=== PATIENT | male | born 1940 | race Caucasian/White ===

== ENCOUNTER 2017-09-14 20:59 | Emergency (ER) | payer MEDICARE, OTHER ==
[2017-09-14 21:37] VITALS: BP 158/82
--- NOTE | 2017-09-14 22:13 | EDM.PDOC ---
ED HPI GENERAL MEDICAL PROBLEM - General Chief Complaint: Burn Stated Complaint: burn to left foot Time Seen by Provider: 09/14/17 21:10 Source of Information: Reports: Patient History Limitations: Reports: No Limitations - History of Present Illness INITIAL COMMENTS - FREE TEXT/NARRATIVE: Patient is 76-year-old who is seen with dorsal left foot burn second-degree apparently patient had a blister and it broke he complains of severe pain on the foot especially when standing up patient was seen by in a cruise ship approximately 2 weeks ago and has been wearing lidocaine with Aldara since that time today his blister has broken and his foot is swollen. Onset: Gradual Duration: Day(s): (10 days), Getting Worse Location: Reports: Lower Extremity, Left Quality: Reports: Ache, Burning, Throbbing Severity: Moderate Improves with: Reports: None Worsens with: Reports: Other (Standing) Context: Reports: Other (Some) Associated Symptoms: Reports: No Other Symptoms Treatments OUTREACH SPECIALIST: Reports: Acetaminophen left foot Pain Score (Numeric/FACES): 10 - Related Data Allergies Allergy/AdvReac Type Severity Reaction Status Date / Time colistin Allergy Hives Verified 09/14/17 21:11 venom-honey bee Allergy Airway Verified 09/14/17 21:11 [bee venom (honey bee)] Tightness Home Meds: Home Meds Acetaminophen [Tylenol Extra Strength] 1,000 mg PO Q4HR PRN 02/27/15 [History] Aspirin 81 mg PO ASDIRECTED 02/27/15 [History] Levothyroxine Sodium 137 mcg PO QAM 02/27/15 [History] Lisinopril 40 mg PO QAM 02/27/15 [History] Loratadine 10 mg PO DAILY PRN 02/27/15 [History] diphenhydrAMINE [Benadryl] 25 mg PO DAILY PRN 02/27/15 [History] glipiZIDE [Glucotrol XL] 10 mg PO BID 02/27/15 [History] metFORMIN [Glucophage] 1,000 mg PO BIDMEALS 02/27/15 [History] Albuterol [Proventil HFA] 1 puff INH ASDIRECTED PRN 02/05/16 [History] Albuterol/Ipratropium [Combivent Respimat] 2 puff IH BID 09/06/16 [History] Finasteride 5 mg PO DAILY 02/05/16 [History] Fishtail-3 Fatty Acids [Fish Oil] 1 tab PO DAILY 02/05/16 [History] Vitamin E 400 unit PO DAILY 02/05/16 [History] atorvaSTATin [Lipitor] 10 mg PO DAILY 02/05/16 [History] Diltiazem [Cardizem CD] 120 mg PO DAILY #30 cap.cd 02/07/16 [Rx] Nicotine [Habitrol] 21 mg TRDERM QPM #30 patch 02/07/16 [Rx] Past Medical History HEENT History: Reports: Allergic Rhinitis, Hard of Hearing, Impaired Vision, Other (See Below) Other HEENT History: Severe right-sided chronic otitis media with Pseudomonas aeruginosa which did require one year of IV antibiotic therapy in 2010 and multiple surgeries as below, bilateral tympanic membrane ruptures during the [place] war at about age 20, patient wears glasses, bilateral hearing aid therapy Cardiovascular History: Reports: Arrhythmia, High Cholesterol, Hypertension, Pacemaker, Syncope, Other (See Below) Other Cardiovascular History: History of probable ventricular tachycardia with secondary syncope and asystole with did require apparent cardioversion and temporary pacemaker Respiratory History: Reports: Bronchitis, Recurrent, COPD, Pulmonary Fibrosis, Sleep Apnea, Other (See Below) Other Respiratory History: Very occasional CPAP use Gastrointestinal History: Reports: Cholelithiasis, Colon Polyp, Diverticulosis, Gastritis, GERD, Helicobacter Pylori, Other (See Below) Other Gastrointestinal History: Recently diagnosed H. 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 Musculoskeletal History: Reports: Arthritis, Back Pain, Chronic, Fracture, Neck Pain, Chronic, Osteoarthritis, Other (See Below) Other Musculoskeletal History: Left anterior tibial avulsion fracture on 09/06/12 , L1 vertebral body compression fracture, left distal radial fracture on 11/07/13 Neurological History: Reports: CVA, Other (See Below) Other Neuro History: 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, PA with head concussion on 08/13/10, Psychiatric History: Reports: Anxiety, Depression, Psych Hospitalization(s), PTSD, Suicidal Ideation, Other (See Below) Other Psychiatric History: 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 [place] and also in about 1999 Endocrine/Metabolic History: Reports: Diabetes, Type II, Hypothyroidism, IDDM, Other (See Below) Other Endocrine/Metabolic History: Not currently using insulin Hematologic History: Reports: None Immunologic History: Reports: None Oncologic (Cancer) History: Reports: Other (See Below) Other Oncologic History: Atypical urine cells and dysplasia as above Dermatologic History: Reports: None - Infectious Disease History Infectious Disease History: Reports: Chicken Pox, Helicobacter Pylori, Measles, Mumps, Rubella, Other (See Below) Other Infectious Disease History: Severe pseudomonas infection as above, 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 Denies: Allergic Rhinitis, Glaucoma, Macular Degeneration , Retinal Detachment Cardiac: Reports: CAD, Heart Failure, PA, Other (See Below) Other Cardiac Family History: Father with PA, mother with fatal CHF in her 60s Respiratory: Reports: None. Denies: Asthma, COPD, PE, Sleep Apnea GI: Reports: None. Denies: Celiac Disease, GERD, GI bleed, Inflammatory Bowel Disease, PUD : Reports: None. Denies: Renal Calculus, Renal Disease/Insufficiency OBGYN: Reports: None. Denies: Endometriosis, Recurrent Spontaneous Musculoskeletal: Reports: None. Denies: Arthritis, Gout, RA, SLE Neurological: Reports: None. Denies: Alzheimers Disease, Cerebral Aneurysms, CVA, Dementia, MS, Parkinson's, Seizure, TIA Psychiatric: Reports: Anxiety, Depression, Suicide Attempt, Other (See Below) Other Psychiatric Family History: Brother with alcohol addiction/abuse fatal at age 58, father with anxiety depression disorder in successful suicide in his 70s Endocrine/Metabolic: Reports: Diabetes, type II, IDDM, Other (See Below) Other Endocrine/Metabolic Family History: Mother with IDDM Hematologic: Reports: None. Denies: Anemia, SLE Immunologic: Reports: None. Denies: AIDS, HIV, SLE Dermatologic: Reports: None. Denies: Eczema, Psoriasis Oncologic: Reports: Breast, Leukemia, Metastatic, Other (See Below) Other Oncologic Family History: Mother with history of breast cancer including skeletal metastases fatal at age 65, brother with fatal leukemia in his 40s - Tobacco Use Smoking Status *Q: Current Every Day Smoker Years of Tobacco use: 56 Packs/Tins Daily: 1 Used Tobacco, but Quit: No Second Hand Smoke Exposure: Yes - Caffeine Use Caffeine Use: Reports: Coffee, Tea - Alcohol Use Days Per Week of Alcohol Use: 0 - Recreational Drug Use Recreational Drug Use: Yes Drug Use in Last 12 Months: No Recreational Drug Type: Reports: Cocaine, Marijuana/Hashish, Morphine Recreational Drug Last Use: last used 40 years ago - Living Situation & Occupation Living situation: Reports: , , with Family Occupation: Disabled ED ROS GENERAL - Review of Systems Review Of Systems: See Below Constitutional: Reports: No Symptoms HEENT: Reports: No Symptoms Respiratory: Reports: No Symptoms Cardiovascular: Reports: No Symptoms Endocrine: Reports: No Symptoms GI/Abdominal: Reports: No Symptoms : Reports: No Symptoms Musculoskeletal: Reports: No Symptoms Skin: Reports: No Symptoms Neurological: Reports: No Symptoms Psychiatric: Reports: No Symptoms Hematologic/Lymphatic: Reports: No Symptoms Immunologic: Reports: No Symptoms ED EXAM, GENERAL - Physical Exam Exam: See Below Exam Limited By: No Limitations General Appearance: Alert, WD/WN, Mild Distress Eye Exam: Bilateral Eye: EOMI, PERRL, Other (Cataract patient will have cataract surgery in 2 days) Ears: Normal External Exam, Normal Canal, Hearing Grossly Normal, Normal TMs Nose: Normal Inspection, Normal Mucosa, No Blood Throat/Mouth: Normal Inspection, Normal Lips, Normal Teeth, Normal Gums, Normal Oropharynx, Normal Voice, No Airway Compromise Head: Atraumatic, Normocephalic Neck: Normal Inspection, Supple, Non-Tender, Full Range of Motion Respiratory/Chest: No Respiratory Distress, Lungs Clear, Normal Breath Sounds, No Accessory Muscle Use, Chest Non-Tender Cardiovascular: Normal Peripheral Pulses, Regular Rate, Rhythm, No Edema, No Gallop, No JVD, No Murmur, No Rub GI/Abdominal: Normal Bowel Sounds, Soft, Non-Tender, No Organomegaly, No Distention, No Abnormal Bruit, No Mass (Male) Exam: Deferred Rectal (Males) Exam: Deferred Back Exam: Normal Inspection, Full Range of Motion, NT Extremities: Leg Pain, Redness, Other (Dorsal foot pain secondary to burn and diabetic foot pain which makes it worse) Neurological: Alert, Oriented, CN II-XII Intact, Normal Cognition, Normal Gait, Normal Reflexes, No Motor/Sensory Deficits Psychiatric: Normal Affect, Normal Mood Skin Exam: Erythema (Dorsal aspect of pain of foot) Course - Vital Signs Last Recorded V/S: Last Vital Signs Temp 98.9 F 09/14/17 21:05 Pulse 105 H 09/14/17 21:05 Resp 20 09/14/17 21:05 BP 158/82 H 09/14/17 21:05 Pulse Ox 99 09/14/17 21:05 - Orders/Labs/Meds Labs: Laboratory Tests 09/14/17 Range/Units 21:15 WBC 13.3 H (4.0-10.2) K/uL RBC 4.41 (4.33-5.41) M/uL Hgb 14.0 (13.1-16.8) g/dL Hct 41.0 (39.0-49.0) % MCV 93.0 (84.0-98.0) fL MCH 31.7 (28.2-33.3) pg MCHC 34.1 (31.7-36.0) g/dL RDW 13.6 (11.2-14.1) % Plt Count 284 (150-350) K/uL Neut % (Auto) 53.0 (45.0-80.0) % Lymph % (Auto) 34.3 (10.0-50.0) % [place] % (Auto) 8.8 (2.0-14.0) % Eos % (Auto) 3.2 (0.0-5.0) % Baso % (Auto) 0.7 (0.0-2.0) % Neut # (Auto) 7.05 H (1.40-7.00) K/uL Lymph # (Auto) 4.58 H (0.50-3.50) K/uL [place] # (Auto) 1.18 H (0.00-1.00) K/uL Eos # (Auto) 0.43 (0.00-0.50) K/uL Baso # (Auto) 0.10 (0.00-0.20) K/uL Departure - Departure Time of Disposition: 22:28 Disposition: Home, Self-Care 01 Clinical Impression: Second degree burn of left foot - Discharge Information Referrals: Marilia Coffman PA [Primary Care Provider] - Care Plan Goals: At this time patient burned with stress with Xeroform and open four by fours [facility] also should be started on gabapentin 300 mg 1 tablet 3 times a day for diabetic foot pain follow-up with primary physician patient given enough dressings for dressing change tomorrow
== END 2017-09-14 22:53 | disposition home or self-care (01) ==
LOC: LL.ED 20:59
DX: T25.222A Burn of second degree of left foot, initial encounter (principal); F17.210 Nicotine dependence, cigarettes, uncomplicated; I25.10 Atherosclerotic heart disease of native coronary artery without angina pectoris; I50.9 Heart failure, unspecified; I25.2 Old myocardial infarction; F41.9 Anxiety disorder, unspecified; F32.9 Major depressive disorder, single episode, unspecified; E11.9 Type 2 diabetes mellitus without complications; Z79.899 Other long term (current) drug therapy; Z91.030 Bee allergy status; Z79.84 Long term (current) use of oral hypoglycemic drugs; X58.XXXA Exposure to other specified factors, initial encounter
CPT/HCPCS: 36415; 85025; 99283

== ENCOUNTER 2018-08-25 15:42 | Inpatient (IN) | payer MEDICARE, OTHER ==
[2018-08-25] MEDS ORDERED: Metoprolol Tartrate 5 MG/5 ML SDV IVPUSH ONE (16:00)
[2018-08-25] MEDS ORDERED: Famotidine 20 MG/2 ML SDV IVPUSH ONE (16:00)
--- NOTE | 2018-08-25 16:00 | EDM.PDOC ---
ED HPI GENERAL MEDICAL PROBLEM - General Chief Complaint: Cardiovascular Problem Stated Complaint: dizziness, HTN Time Seen by Provider: 08/25/18 15:55 Source of Information: Reports: Patient, Family (), Old Records ([facility] chart/EMR) History Limitations: Reports: No Limitations - History of Present Illness INITIAL COMMENTS - FREE TEXT/NARRATIVE: The patient was brought to the emergency room via private automobile by his for evaluation of progressive chronic vertigo and dizziness with symptoms starting about one week ago. Patient was placed on low-dose spironolactone prior to the symptoms with patient stopping these medications after only 4 doses , however no improvement in the symptoms. Note that the patient is also having some recurrence of right ear problems with possible planned surgery in the near future. The patient denies any chest pain/pressure, heart flutter, orthopnea, diaphoresis, paresthesias, recent decreased exercise tolerance, or any other anginal-type symptoms. No recent history of abdominal pain, heartburn, nausea, diarrhea, melena, gross hematochezia, or any food intolerance, including fatty foods, etc.. He denies any gross hematuria, colic, or other UTI symptoms. The patient also denies any recent fever, wheezing, dyspnea, etc., although he should not mild nonproductive cough in the last few days. His blood pressure has been under somewhat poor control with blood pressure of 190/103 shortly prior to arrival. No history of recent headaches, visual changes, diplopia, change in mental status, or other change in neurological status. He denies any pain or other discomfort. Onset: Gradual, Unknown/Unsure Onset Date: 08/18/18 Duration: Constant, Getting Worse Location: Reports: Other (No pain) Quality: Reports: Same as Previous Episode Severity: Moderate Improves with: Reports: Rest Worsens with: Reports: Movement Context: Reports: Other (As above). Denies: Sick Contact, Trauma Associated Symptoms: Reports: Cough. 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: Other (see below) (None) - Related Data Allergies Allergy/AdvReac Type Severity Reaction Status Date / Time colistin Allergy Hives Verified 08/25/18 15:48 venom-honey bee Allergy Airway Verified 08/25/18 15:48 [bee venom (honey bee)] Tightness yellow jackets Allergy Swelling Uncoded 08/25/18 15:48 Home Meds: Home Meds Aspirin 81 mg PO ASDIRECTED 02/27/15 [History] Levothyroxine Sodium 137 mcg PO QAM 02/27/15 [History] Lisinopril 40 mg PO QAM 02/27/15 [History] Loratadine 10 mg PO DAILY PRN 02/27/15 [History] diphenhydrAMINE [Benadryl] 25 mg PO DAILY PRN 02/27/15 [History] glipiZIDE [Glucotrol XL] 10 mg PO BID 02/27/15 [History] metFORMIN [Glucophage] 1,000 mg PO BIDMEALS 02/27/15 [History] Albuterol [Proventil HFA] 1 puff INH ASDIRECTED PRN 02/05/16 [History] Finasteride 5 mg PO DAILY 02/05/16 [History] [place]-3 Fatty Acids [Fish Oil] 1 tab PO DAILY 02/05/16 [History] atorvaSTATin [Lipitor] 10 mg PO DAILY 02/05/16 [History] Cranberry Conc/C/Bacill Coag [Cranberry Tablet] 1 each PO DAILY PRN 08/25/18 [ History] Diltiazem [Cardizem CD] 120 mg PO DAILY@18 08/25/18 [History] Past Medical History HEENT History: Reports: Allergic Rhinitis, Hard of Hearing, Impaired Vision, Otitis Media, Other (See Below). Denies: Cataract, Glaucoma, Macular Degeneration, Retinal Detachment Other HEENT History: Severe right-sided chronic otitis media with Pseudomonas aeruginosa which did require one year of IV antibiotic therapy in 2010 and multiple surgeries as below, bilateral tympanic membrane ruptures during the [place] war at about age 20, patient wears reading glasses, bilateral hearing aid therapy, vitreous floaters without history of retinal detachment or diabetic retinopathy. Cardiovascular History: Reports: Arrhythmia, High Cholesterol, Hypertension, Pacemaker, Syncope, Other (See Below). Denies: Afib, Blood Clots/VTE/DVT, Bypass, CAD, Heart Failure, Heart Murmur, IA, Stents Other Cardiovascular History: History of probable ventricular tachycardia with secondary syncope and asystole with did require apparent cardioversion and temporary pacemaker in 1992. PVCs. History of atrial fibrillation? Respiratory History: Reports: Bronchitis, Recurrent, COPD, Intubation, Previous , Pneumonia, Recurrent, Pulmonary Fibrosis, Sleep Apnea, Other (See Below). Denies: Intubation, Difficult, PE, Pneumothorax, TB Other Respiratory History: Very occasional CPAP use Gastrointestinal History: Reports: Cholelithiasis, Colon Polyp, Diverticulosis, Fecal Incontinence, Gastritis, GERD, Helicobacter Pylori, Other (See Below). Denies: Bowel Obstruction, Celiac Disease, Chronic Constipation, Chronic Diarrhea, GI Bleed, Hepatitis, Inflammatory Bowel Disease, Irritable Bowel Syndrome, Jaundice, Pancreatitis, PUD Other Gastrointestinal History: H. pylori infection on 11/30/09, however the patient apparently did not complete recommended therapy. Genitourinary History: Reports: BPH, Chronic Renal Insuffiency, Diabetic Nephropathy, Renal Calculus, Urinary Incontinence, UTI, Recurrent, Other (See Below). 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 Proteinuria with diabetic nephropathy. Musculoskeletal History: Reports: Arthritis, Back Pain, Chronic, Fracture, Neck Pain, Chronic, Osteoarthritis, Other (See Below). Denies: Amputation, Gout, RA , SLE Other Musculoskeletal History: Left anterior tibial avulsion fracture on 09/06/12 , L1 vertebral body compression fracture, left distal radial fracture on 11/07/13 Neurological History: Reports: Concussion, CVA, Head Trauma, Other (See Below). 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 Denies: Diabetes, Type I, Diabetes Mellitus , Type 3c Other Endocrine/Metabolic History: Not currently using insulin. Hypoalbuminemia. Hematologic History: Reports: None. Denies: Anemia, B12 Deficiency, Blood Transfusion(s), Iron Deficiency Immunologic History: Reports: None. Denies: AIDS, HIV, SLE Oncologic (Cancer) History: Reports: Bladder, Other (See Below). Denies: Basal Cell Carcinoma, Colon, Hodgkin's Lymphoma, Leukemia, Lymphoma, Malignant Melanoma, Non-Hodgkin's Lymphoma, Prostate, Squamous Cell Carcinoma Other Oncologic History: Atypical urine cells and dysplasia as above Dermatologic History: Reports: None. Denies: Eczema, Psoriasis - Infectious Disease History Infectious Disease History: Reports: Chicken Pox, Helicobacter Pylori, Measles, Mumps, Rubella, Other (See Below). 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 Denies: Cataract Surgery, Eye Surgery, Laser Surgery, LASIK, Naso-Sinus Surgery Other HEENT Surgeries/Procedures: Right-sided mastoidectomy in the distant past with 2 right-sided mastoid and ear surgeries in 2008 and 2019. Unknown type of left ear surgery in 2011. Tonsillectomy as a child. Complete teeth extractions with complete dentures uppers and lowers. Cardiovascular Surgical History: Reports: Pacer, Other (See Below). Denies: Coronary Artery Bypass, Coronary Artery Stent, Varicose, Vascular Surgery Other Cardiovascular Surgeries/Procedures: Temporary pacemaker 1992 as above with subsequent electro-ablation on 07/15/1992. Respiratory Surgical History: Reports: None. Denies: Thoracentesis GI Surgical History: Reports: Cholecystectomy, Colonoscopy, Polypectomy, Other ( See Below). Denies: Appendectomy, EGD, Hernia, Abdominal, Hernia, Inguinal, Hernia Repair/Other Other GI Surgeries/Procedures: Laparoscopic cholecystectomy in about 2007. Colonoscopy in 1987 with polypectomy and patient refusing further follow-up colonoscopy. Male Surgical History: Reports: Circumcision, Other (See Below). Denies: TURP-Transurethral Resection of Prostate, Vasectomy Other Male Surgeries/Procedures: Circumcision as an . Endocrine Surgical History: Reports: None. Denies: Thyroid Biopsy Neurological Surgical History: Reports: None. Denies: C-Spine, Discectomy, Laminectomy, Lumbar Spine, Sacral Spine, Spinal Fusion, Thoracic Spine, Vertebroplasty Musculoskeletal Surgical History: Reports: None. Denies: Arthroscopic Procedure , Carpal Tunnel, Ganglion Cyst, Joint Replacement, ORIF, Shoulder Surgery Oncologic Surgical History: Reports: None Dermatological Surgical History: Reports: None - Past Imaging History Past Imaging History: Reports: CAT Scan (CT scan of the head, chest, and C- spine on 08/13/10.), MRI (C-spine on 04/23/10.), Sleep Study, Ultrasound (Renal ultrasound on 11/22/13.). Denies: Cardiac Echo, Stress Testing Social & Family History - Family History HEENT: Reports: None. Denies: Allergic Rhinitis, Glaucoma, Macular Degeneration , Retinal Detachment Cardiac: Reports: CAD, Heart Failure, IA, Other (See Below). Denies: Afib, AICD , Arrhythmia, Blood Clots/VTE/DVT, Bypass, High Cholesterol, Hypertension, Pacemaker, PVD/COD, Syncope Other Cardiac Family History: Father with IA, mother with fatal CHF in her 60s Respiratory: Reports: None. Denies: Asthma, COPD, PE, Pneumothorax, Sleep Apnea GI: Reports: None. Denies: Celiac Disease, Cholelithiasis, Colon Polyps, GERD, GI bleed, Inflammatory Bowel Disease, Irritable Bowel Syndrome, PUD : Reports: None. Denies: Renal Calculus, Renal Disease/Insufficiency OBGYN: Reports: None. Denies: Endometriosis, Recurrent Spontaneous Musculoskeletal: Reports: None. Denies: Arthritis, Gout, RA, SLE Neurological: Reports: None. Denies: Alzheimers Disease, Cerebral Aneurysms, CVA, Dementia, MS, Parkinson's, Seizure, TIA Psychiatric: Reports: Anxiety, Depression, Suicide Attempt, Other (See Below). Denies: Abuse, Victim of, ADD, ADHD Other Psychiatric Family History: Brother with alcohol addiction/abuse fatal at age 58, father with anxiety depression disorder in successful suicide in his 70s Endocrine/Metabolic: Reports: Diabetes, type II, IDDM, Other (See Below). Denies: Diabetes, Type I, Diabetes Mellitus, Type 3c, Hypothyroidism Other Endocrine/Metabolic Family History: Mother with IDDM Hematologic: Reports: None. Denies: Anemia, SLE Immunologic: Reports: None. Denies: AIDS, HIV, SLE Dermatologic: Reports: None. Denies: Eczema, Psoriasis Oncologic: Reports: Breast, Leukemia, Metastatic, Other (See Below). Denies: Colon, Hodgkin's Lymphoma, Lymphoma, Non-Hodgkin's Lymphoma, Prostate Other Oncologic Family History: Mother with history of breast cancer including skeletal metastases fatal at age 65, brother with fatal leukemia in his 40s - Tobacco Use Smoking Status *Q: Current Every Day Smoker Tobacco Use Within Last Twelve Months: Cigarettes Years of Tobacco use: 58 Packs/Tins Daily: 0.5 Packs/Tins Daily Comment: He started smoking at age 19 with maximum use of one pack per day. Used Tobacco, but Quit: No Smoking Cessation Information Provided To Patient: Yes Second Hand Smoke Exposure: Yes Second Hand Smoke Education Provided: Yes - Caffeine Use Caffeine Use: Reports: Coffee (2 cups per day). Denies: Energy Drinks, Soda, Tea - Alcohol Use Alcohol Use History: Yes Days Per Week of Alcohol Use: 0 Number of Drinks Per Day: 3 Number of Drinks Per Day Comment: Usually mixed drinks on special occasions and holidays. No previous DWIs, problems with alcohol abuse, etc. Total Drinks Per Week: 0 Alcohol Use in Last Twelve Months: Yes Alcohol Use Frequency: Rarely - Recreational Drug Use Recreational Drug Use: Yes Drug Use in Last 12 Months: No Recreational Drug Type: Reports: Cocaine (Experimental in his 30s.), Marijuana/ Hashish (Last used in 2013.), Morphine (Addiction with treatment as above.). 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 ED EXAM, GENERAL - Physical Exam Exam: See Below Exam Limited By: No Limitations General Appearance: Alert, WD/WN, No Apparent Distress Eye Exam: Bilateral Eye: EOMI, Normal Fundi, Normal Inspection (No nystagmus however vertigo with head movement), PERRL Ears: Normal External Exam, Normal Canal, Normal TMs, Hearing Loss (Moderate bilateral presbycusis versus chronic hearing loss with patient only wearing his left hearing aid today) Nose: Normal Inspection, Normal Mucosa, No Blood Throat/Mouth: Normal Lips, Normal Gums, Normal Oropharynx, Normal Voice, No Airway Compromise. No: Normal Teeth (Complete dentures uppers and lowers), Dysphagia, Perioral Cyanosis Head: Atraumatic, Normocephalic. No: Facial Swelling, Facial Tenderness, Sinus Tenderness Neck: Supple, Non-Tender, Full Range of Motion, Carotid Bruit (Mild bilateral carotid bruits). No: Lymphadenopathy (L), Lymphadenopathy (R), Thyromegaly Respiratory/Chest: No Respiratory Distress, No Accessory Muscle Use, Rales ( Mild bilateral basilar rales). No: Pleural Rub, Retractions Cardiovascular: Normal Peripheral Pulses, Regular Rate, Rhythm, No Gallop, No JVD, No Murmur, No Rub. No: No Edema (Dependent edema as below), Gallop/S3, Gallop/S4, Extra Beats (No extrasystoles at time of exam), Friction Rub Peripheral Pulses: 2+: Radial (L), Radial (R), Dorsalis Pedis (L), Dorsalis Pedis (R) GI/Abdominal: Normal Bowel Sounds, Soft, Non-Tender, No Organomegaly, No Distention, No Abnormal Bruit, No Mass, Other (Obese). No: Pelvis Stable, Guarding (Male) Exam: Deferred Rectal (Males) Exam: Deferred Back Exam: Normal Inspection, Full Range of Motion. No: CVA Tenderness (L), CVA Tenderness (R), Muscle Spasm Extremities: Normal Range of Motion, Non-Tender, Pedal Edema (+1 bilateral pedal /pretibial edema), Casi's Sign. No: No Pedal Edema Neurological: Alert, Oriented, CN II-XII Intact, Normal Cognition, Normal Gait, Normal Reflexes (Negative Babinski's ), No Motor/Sensory Deficits Psychiatric: Normal Affect, Normal Mood Skin Exam: Warm, Dry, Intact, Normal Color, No Rash. No: Diaphoretic, Wound/ Incision Lymphatic: No Adenopathy EKG INTERPRETATION EKG Date: 08/25/18 Time: 16:09 Rhythm: NSR Rate (Beats/Min): 72 [place]: Normal (Neutral cardiac axis) P-Wave: Present (Moderate diffuse biphasic P waves with extreme poor R-wave progression in the anterior leads) QRS: Wide (QRS interval of 0.10 seconds representing stable repolarization changes versus borderline incomplete right bundle branch block with stable T- wave inversion in lead V1) ST-T: Normal QT: Normal NJ/PQ Interval: 0.43 seconds representing a severe newly diagnosed first-degree AV block Comparison: Change From Previous EKG (As above since 02/06/16.) EKG Interpretation Comments: 1. Newly diagnosed severe first-degree AV block 2. No acute ischemic changes 3. Repolarization changes versus borderline incomplete right bundle branch block 4. Left atrial enlargement Course - Vital Signs Last Recorded V/S: Last Vital Signs Temp 36.5 C 08/25/18 15:45 Pulse 74 08/25/18 16:08 Resp 16 08/25/18 15:45 BP 186/106 H 08/25/18 16:08 Pulse Ox 98 08/25/18 15:45 Vital Signs - 24 hr 08/25/18 08/25/18 08/25/18 15:45 16:01 16:08 Temperature [ 36.5 C Temporal] Pulse, 74 Peripheral Pulse, 66 71 Peripheral [ Brachial] Respiratory 16 17 Rate Blood Pressure 186/106 H Blood Pressure 188/98 H 186/106 H [Right Upper Arm] O2 Sat by Pulse 98 99 Oximetry 08/25/18 08/25/18 08/25/18 16:15 16:30 16:45 Temperature [ Temporal] Pulse, Peripheral Pulse, 68 63 Peripheral [ Brachial] Respiratory 15 16 Rate Blood Pressure Blood Pressure 184/98 H 170/91 H 168/88 H [Right Upper Arm] O2 Sat by Pulse 98 97 Oximetry - Orders/Labs/Meds Orders: Active Orders 24 hr Category Date Time Status Cardiac Monitoring [RC] . DIRECTED Care 08/25/18 16:01 Active EKG Documentation Completion [RC] ASDIRECTED Care 08/25/18 16:01 Active Oxygen Therapy, ED [RC] PRN Care 08/25/18 16:01 Active Peripheral IV Care [RC] . DIRECTED Care 08/25/18 16:01 Active Pulse Oximetry [RC] CONTINUOUS Care 08/25/18 16:01 Active Up With Assistance [RC] PFP Care 08/25/18 16:01 Active Vital Signs [RC] PFP Care 08/25/18 16:01 Active Nothing per Oral Now Diet [DIET] Diet 08/25/18 Breakfast Active Chest 1V Frontal [CR] Stat Exams 08/25/18 16:01 Ordered Furosemide [Lasix] Med 08/25/18 17:07 Once 60 mg IVPUSH NOW ONE Sodium Chloride 0.9% [Saline Flush] Med 08/25/18 16:00 Active 10 ml FLUSH ASDIRECTED PRN Obtain Past Medical Record [OM.PC] Urgent Oth 08/25/18 16:01 Active Peripheral IV Insertion Adult [OM.PC] Stat Oth 08/25/18 16:01 Ordered Resuscitation Status Stat Resus Stat 08/25/18 16:00 Ordered EKG 12 Lead [EK] Stat Ther 08/25/18 16:01 Ordered Medication Orders Furosemide (Lasix) 60 mg IVPUSH NOW ONE Stop: 08/25/18 17:08 Sodium Chloride (Saline Flush) 10 ml FLUSH ASDIRECTED PRN PRN Reason: Keep Vein Open Last Admin: 08/25/18 16:13 Dose: 10 ml Labs: Laboratory Tests 08/25/18 08/25/18 08/25/18 Range/Units 16:02 16:02 16:02 WBC 11.0 H (4.0-10.2) K/uL RBC 4.46 (4.33-5.41) M/uL Hgb 14.2 (13.1-16.8) g/dL Hct 41.3 (39.0-49.0) % MCV 92.6 (84.0-98.0) fL MCH 31.8 (28.2-33.3) pg MCHC 34.4 (31.7-36.0) g/dL RDW 13.0 (11.2-14.1) % Plt Count 251 (150-350) K/uL Neut % (Auto) 58.0 (45.0-80.0) % Lymph % (Auto) 32.2 (10.0-50.0) % Island % (Auto) 6.8 (2.0-14.0) % Eos % (Auto) 1.9 (0.0-5.0) % Baso % (Auto) 1.1 (0.0-2.0) % Neut # (Auto) 6.40 (1.40-7.00) K/uL Lymph # (Auto) 3.56 H (0.50-3.50) K/uL Island # (Auto) 0.75 (0.00-1.00) K/uL Eos # (Auto) 0.21 (0.00-0.50) K/uL Baso # (Auto) 0.12 (0.00-0.20) K/uL PT 10.4 (9.5-12.0) SEC INR 1.0 APTT 27.1 (21.0-31.3) SEC D-Dimer, Quantitative 209 (0-400) ng/mL Sodium (136-145) mmol/L Potassium (3.5-5.1) mmol/L Chloride (98-107) mmol/L Carbon Dioxide (21.0-32.0) mmol/L BUN (7-18) mg/dL Creatinine (0.51-1.17) mg/dL Est Cr Clr Drug Dosing Estimated GFR (MDRD) mL/min Glucose (74-106) mg/dL Lactic Acid (0.4-2.0) mmol/L Uric Acid (2.6-7.2) mg/dL Calcium (8.5-10.1) mg/dL Magnesium (1.8-2.4) mg/dL Total Bilirubin (0.2-1.0) mg/dL AST (15-37) U/L ALT (12-78) U/L Alkaline Phosphatase (46-116) IU/L Creatine Kinase (26-308) U/L Creatine Kinase Index (0.0-2.5) % CK-MB (CK-2) (0.00-3.60) ng/mL Troponin I (0.000-0.056) ng/mL NT-Pro-B Natriuret Pep (0-125) pg/mL Total Protein (6.4-8.2) g/dL Albumin (3.4-5.0) g/dL TSH, Ultra Sensitive (0.358-3.740) mIU/mL 08/25/18 08/25/18 Range/Units 16:02 16:02 WBC (4.0-10.2) K/uL RBC (4.33-5.41) M/uL Hgb (13.1-16.8) g/dL Hct (39.0-49.0) % MCV (84.0-98.0) fL MCH (28.2-33.3) pg MCHC (31.7-36.0) g/dL RDW (11.2-14.1) % Plt Count (150-350) K/uL Neut % (Auto) (45.0-80.0) % Lymph % (Auto) (10.0-50.0) % Island % (Auto) (2.0-14.0) % Eos % (Auto) (0.0-5.0) % Baso % (Auto) (0.0-2.0) % Neut # (Auto) (1.40-7.00) K/uL Lymph # (Auto) (0.50-3.50) K/uL [place] # (Auto) (0.00-1.00) K/uL Eos # (Auto) (0.00-0.50) K/uL Baso # (Auto) (0.00-0.20) K/uL PT (9.5-12.0) SEC INR APTT (21.0-31.3) SEC D-Dimer, Quantitative (0-400) ng/mL Sodium 137 (136-145) mmol/L Potassium 4.0 (3.5-5.1) mmol/L Chloride 101 (98-107) mmol/L Carbon Dioxide 29.5 (21.0-32.0) mmol/L BUN 22 H (7-18) mg/dL Creatinine 1.27 H (0.51-1.17) mg/dL Est Cr Clr Drug Dosing TNP Estimated GFR (MDRD) 55 mL/min Glucose 291 H (74-106) mg/dL Lactic Acid 0.8 (0.4-2.0) mmol/L Uric Acid 5.0 (2.6-7.2) mg/dL Calcium 8.9 (8.5-10.1) mg/dL Magnesium 1.6 L (1.8-2.4) mg/dL Total Bilirubin 0.8 (0.2-1.0) mg/dL AST 14 L (15-37) U/L ALT 30 (12-78) U/L Alkaline Phosphatase 89 (46-116) IU/L Creatine Kinase 62 (26-308) U/L Creatine Kinase Index 2.3 (0.0-2.5) % CK-MB (CK-2) 1.40 (0.00-3.60) ng/mL Troponin I 0.017 (0.000-0.056) ng/mL NT-Pro-B Natriuret Pep 321 H (0-125) pg/mL Total Protein 6.9 (6.4-8.2) g/dL Albumin 3.1 L (3.4-5.0) g/dL TSH, Ultra Sensitive 3.397 (0.358-3.740) mIU/mL Meds: Medications Generic Name Dose Route Start Last Admin Trade Name Freq PRN Reason Stop Dose Admin Furosemide 60 mg 08/25/18 17:07 Lasix IVPUSH 08/25/18 17:08 NOW ONE Sodium Chloride 10 ml 08/25/18 16:00 08/25/18 16:13 Saline Flush FLUSH 10 ml ASDIRECTED PRN Administration Keep Vein Open Discontinued Medications Generic Name Dose Route Start Last Admin Trade Name Freq PRN Reason Stop Dose Admin Famotidine 40 mg 08/25/18 16:00 08/25/18 16:13 Pepcid IVPUSH 08/25/18 16:01 40 mg ONETIME ONE Administration Metoprolol Tartrate 2.5 mg 08/25/18 16:00 08/25/18 16:08 Lopressor IVPUSH 08/25/18 16:01 2.5 mg ONETIME ONE Administration - Radiology Interpretation Free Text/Narrative:: youth nutritional monitor showed initial sinus rhythm with very occasional PVCs with initial heart rate in the 70s to 80s and heart rate in the 60s prior to admission Chest x-ray, portable, shows moderate COPD changes with probable pulmonary hypertension and mild centralized CHF. No pulmonary infiltrates, pneumothorax, or cardiomegaly with some prominence of the aortic arch noted Departure - Departure Time of Disposition: 17:30 Disposition: Admitted As Inpatient 68 Condition: Good Clinical Impression: Peptic reflux disease, Mixed anxiety depressive disorder, Renal insufficiency, Hypoalbuminemia, Hypomagnesemia, First degree AV block COPD (chronic obstructive pulmonary disease) Qualifiers: COPD type: emphysema Emphysema type: panlobular Qualified Code(s): J43.1 - Panlobular emphysema Hypothyroidism Qualifiers: Hypothyroidism type: acquired Qualified Code(s): E03.9 - Hypothyroidism, unspecified Hyperlipidemia Qualifiers: Hyperlipidemia type: unspecified Qualified Code(s): E78.5 - Hyperlipidemia, unspecified Diabetes mellitus Qualifiers: Diabetes mellitus type: type 2 Diabetes mellitus [facility] insulin use: without rodent exterminator use Diabetes mellitus complication status: with kidney complications Diabetes mellitus complication detail: with chronic kidney disease Chronic kidney disease stage: stage 2 (mild) Qualified Code(s): E11.22 - Type 2 diabetes mellitus with diabetic chronic kidney disease; N18.2 - Chronic kidney disease, stage 2 (mild) CHF (congestive heart failure) Qualifiers: Heart failure type: unspecified Heart failure chronicity: acute Qualified Code( s): I50.9 - Heart failure, unspecified Referrals: Marilia Coffman PA [Primary Care Provider] - Forms: ED Department Discharge - Problem List & Annotations (1) CHF (congestive heart failure) SNOMED Code(s): 34464789 Code(s): I50.9 - HEART FAILURE, UNSPECIFIED Status: Acute Priority: High Current Visit: Yes Onset Date: 08/25/18 Annotation/Comment:: Patient with history of recent increasing dependent edema without chest pain or anginal type symptoms. Mildly elevated BNP with mild centralized CHF by chest x-ray. Note mild change in troponin I secondary to his CHF and renal insufficiency. Otherwise his cardiac enzymes are normal. Chest pain protocol not initiated on arrival secondary to absence of anginal complaints. Initiate standard rule out IA orders. Cardiology consultation depending on his clinical course with patient apparently having a cardiology consultation at the [facility] in [place] on 09/27. Echocardiogram recommended on an outpatient basis. Possible additional cardiac workup depending on his clinical course. High-dose IV Lasix therapy initiated in the emergency room. Qualifiers: Heart failure type: unspecified Heart failure chronicity: acute Qualified Code(s): I50.9 - Heart failure, unspecified (2) First degree AV block SNOMED Code(s): 491161290 Code(s): I44.0 - ATRIOVENTRICULAR BLOCK, FIRST DEGREE Status: Acute Priority: High Current Visit: Yes Onset Date: 08/25/18 Annotation/Comment: : Newly diagnosed. Patient is uncertain about current medical therapy with medications to be brought to this facility [facility] by his . Discontinue diltiazem, if he is still on this medication. Low Dose IV Lopressor was given for blood pressure control prior to obtaining EKG. No further beta lashaun therapy at this time, however. 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 Further EP studies, cardiology consultation, etc. with patient possibly candidate for an AICD/ pacemaker. Occasional nonsymptomatic PVCs, which were previously present. Possible history of atrial fibrillation in the past? (3) Diabetes mellitus SNOMED Code(s): 68635074 Code(s): E11.9 - TYPE 2 DIABETES MELLITUS WITHOUT COMPLICATIONS Status: Chronic Priority: Medium Current Visit: Yes Annotation/Comment:: Patient has not been checking his Accu-Cheks at home. Glycosylated hemoglobin in the a.m. Consider sliding scale depending on his clinical course. Qualifiers: Diabetes mellitus type: type 2 Diabetes mellitus [facility] insulin use: without rodent exterminator use Diabetes mellitus complication status: with kidney complications Diabetes mellitus complication detail: with chronic kidney disease Chronic kidney disease stage: stage 2 (mild) Qualified Code(s): E11.22 - Type 2 diabetes mellitus with diabetic chronic kidney disease; N18.2 - Chronic kidney disease, stage 2 (mild) (4) Hyperlipidemia SNOMED Code(s): 21895916 Code(s): E78.5 - HYPERLIPIDEMIA, UNSPECIFIED Status: Chronic Priority: Medium Current Visit: Yes Annotation/Comment:: Currently under therapy. Lipid panel in the a.m. Weight loss in moderation advisable. Qualifiers: Hyperlipidemia type: unspecified Qualified Code(s): E78.5 - Hyperlipidemia , unspecified (5) Hypoalbuminemia SNOMED Code(s): 835393466 Code(s): E88.09 - OTH DISORDERS OF PLASMA-PROTEIN METABOLISM, NEC Status: Chronic Priority: Medium Current Visit: Yes Annotation/Comment:: Observe for now. Consider high protein Glucerna supplement depending on his clinical course (6) Hypomagnesemia SNOMED Code(s): 208320889 Code(s): E83.42 - HYPOMAGNESEMIA Status: Acute Priority: Medium Current Visit: Yes Onset Date: 08/25/18 Annotation/Comment:: Initiate magnesium oxide therapy. Observe closely secondary to IV Lasix therapy as above (7) Mixed anxiety depressive disorder SNOMED Code(s): 308204272 Code(s): F41.8 - OTHER SPECIFIED ANXIETY DISORDERS Status: Chronic Priority: Medium Current Visit: Yes Annotation/Comment:: Stable by history (8) Renal insufficiency SNOMED Code(s): 114599474, 127389445 Code(s): N28.9 - DISORDER OF KIDNEY AND URETER, UNSPECIFIED Status: Acute Priority: Medium Current Visit: Yes Onset Date: 02/05/16 Annotation/ Comment:: Probable diabetic nephropathy. Close observation during hospitalization, etc. secondary to IV Lasix therapy. Apparent history of proteinuria with patient followed by a independent contractor. (9) COPD (chronic obstructive pulmonary disease) SNOMED Code(s): 24431331 Code(s): J44.9 - CHRONIC OBSTRUCTIVE PULMONARY DISEASE, UNSPECIFIED Status : Chronic Priority: Medium Current Visit: Yes Annotation/Comment:: No recent fever or bronchitic-type symptoms, despite mild leukocytosis as below. Qualifiers: COPD type: emphysema Emphysema type: panlobular Qualified Code(s): J43.1 - Panlobular emphysema (10) Hypothyroidism SNOMED Code(s): 98713645 Code(s): E03.9 - HYPOTHYROIDISM, UNSPECIFIED Status: Chronic Priority: Medium Current Visit: Yes Annotation/Comment:: TSH normal today with continuation of current medical therapy. Qualifiers: Hypothyroidism type: acquired Qualified Code(s): E03.9 - Hypothyroidism, unspecified (11) Peptic reflux disease SNOMED Code(s): 654311878 Code(s): K21.9 - GASTRO-ESOPHAGEAL REFLUX DISEASE WITHOUT ESOPHAGITIS Status: Chronic Priority: Medium Current Visit: Yes Annotation/Comment:: Stable by history. High-dose IV Pepcid given in the emergency room as GI prophylaxis - Problem List Review Problem List Initiated/Reviewed/Updated: Yes - My Orders Last 24 Hours: My Active Orders 08/25/18 16:00 Sodium Chloride 0.9% [Saline Flush] 10 ml FLUSH ASDIRECTED PRN Resuscitation Status Stat 08/25/18 16:01 Cardiac Monitoring [RC] . DIRECTED EKG Documentation Completion [RC] ASDIRECTED Oxygen Therapy, ED [RC] PRN Peripheral IV Care [RC] . DIRECTED Pulse Oximetry [RC] CONTINUOUS Up With Assistance [RC] PFP Vital Signs [RC] PFP Chest 1V Frontal [CR] Stat Obtain Past Medical Record [OM.PC] Urgent Peripheral IV Insertion Adult [OM.PC] Stat EKG 12 Lead [EK] Stat 08/25/18 17:07 Furosemide [Lasix] 60 mg IVPUSH NOW ONE 08/25/18 Breakfast Nothing per Oral Now Diet [DIET] - Assessment/Plan Last 24 Hours: My Active Orders 08/25/18 16:00 Sodium Chloride 0.9% [Saline Flush] 10 ml FLUSH ASDIRECTED PRN Resuscitation Status Stat 08/25/18 16:01 Cardiac Monitoring [RC] . DIRECTED EKG Documentation Completion [RC] ASDIRECTED Oxygen Therapy, ED [RC] PRN Peripheral IV Care [RC] . DIRECTED Pulse Oximetry [RC] CONTINUOUS Up With Assistance [RC] PFP Vital Signs [RC] PFP Chest 1V Frontal [CR] Stat Obtain Past Medical Record [OM.PC] Urgent Peripheral IV Insertion Adult [OM.PC] Stat EKG 12 Lead [EK] Stat 08/25/18 17:07 Furosemide [Lasix] 60 mg IVPUSH NOW ONE 08/25/18 Breakfast Nothing per Oral Now Diet [DIET] Assessment:: As above Plan: As above. Extensive precautions were given to the patient and his , who are in agreement with the treatment plan. The patient will require about 3-4 days of inpatient/acute care secondary to multiple health problems as above. [facility] assumes care in the a.m.
[2018-08-25] MEDS: Sodium Chloride 0.9% 10 ML Syringe FLUSH PRN ×2 (16:13→17:20)
[2018-08-25 16:33] LABS: CHLORIDE,CL 101 mmol/L (98-107); SODIUM,NA 137 mmol/L (136-145)
[2018-08-25] MEDS ORDERED: Furosemide 40 MG/4 ML VIAL IVPUSH ONE (17:07)
[2018-08-25] MEDS ORDERED: Acetaminophen 325 MG Tab PO PRN (17:54)
[2018-08-25] MEDS ORDERED: Temazepam 15 MG Cap PO PRN (17:54)
[2018-08-25] MEDS ORDERED: Sodium Chloride 0.9% 10 ML Syringe FLUSH PRN (17:54)
[2018-08-25] MEDS: Spironolactone 25 MG Tab PO SCH (18:50)
[2018-08-25] MEDS: Lisinopril 20 MG Tab PO SCH (18:50)
[2018-08-25] MEDS: Potassium Chloride 20 MEQ Tab.ER PO SCH (18:52)
[2018-08-25] MEDS: metFORMIN 500 MG Tab PO SCH (18:53)
[2018-08-25] MEDS: glipiZIDE 5 MG Tab.ER PO SCH (18:53)
[2018-08-25] MEDS: Nicotine 21 MG/24 Hr Patch TRDERM SCH (18:54)
[2018-08-25] MEDS: Levofloxacin/Dextrose 5%-Water 500 MG in Premix Bag 1 BAG IV SCH (18:54)
[2018-08-25] MEDS: atorvaSTATin 10 MG Tab PO SCH (20:08)
[2018-08-25] MEDS ORDERED: DEXAMETHASONE OT SCH (20:15)
[2018-08-25] MEDS ORDERED: CIPROFLOXACIN OT SCH (20:15)
[2018-08-25] MEDS ORDERED: DEXAMETHASONE EARBOTH SCH (21:35)
[2018-08-25] MEDS ORDERED: CIPROFLOXACIN EARBOTH SCH (21:35)
[2018-08-25] MEDS: DEXAMETHASONE EARBOTH SCH (22:09)
[2018-08-25] MEDS: CIPROFLOXACIN EARBOTH SCH (22:09)
[2018-08-26] MEDS: Furosemide 40 MG/4 ML VIAL IVPUSH SCH ×2 (00:05→08:13)
[2018-08-26 07:13] LABS: HEMOGLOBIN A1C 9.1 % (4.3-5.7)
[2018-08-26] MEDS ORDERED: OMEGA PO SCH (08:00)
[2018-08-26] MEDS ORDERED: Magnesium Oxide 400 MG Tab PO SCH (08:00)
[2018-08-26] MEDS ORDERED: Aspirin 81 MG Tab.Chew PO SCH (08:00)
[2018-08-26] MEDS: Levothyroxine 150 MCG Tab PO SCH (08:05)
[2018-08-26] MEDS: Spironolactone 25 MG Tab PO SCH (08:05)
[2018-08-26] MEDS: DEXAMETHASONE EARBOTH SCH ×2 (08:06→19:03)
[2018-08-26] MEDS: Meclizine 25 MG Tab PO SCH ×3 (08:06→19:03)
[2018-08-26] MEDS: CIPROFLOXACIN EARBOTH SCH ×2 (08:06→19:03)
[2018-08-26] MEDS: Potassium Chloride 20 MEQ Tab.ER PO SCH ×2 (08:07→12:27)
[2018-08-26] MEDS: metFORMIN 500 MG Tab PO SCH (08:07)
[2018-08-26] MEDS: glipiZIDE 5 MG Tab.ER PO SCH ×2 (08:07→19:03)
[2018-08-26] MEDS: Fish Oil/Omega-3 Fatty Acids 1 Gm Cap PO SCH (08:07)
[2018-08-26] MEDS: Lisinopril 20 MG Tab PO SCH (08:08)
[2018-08-26] MEDS: Finasteride 5 MG Tab PO SCH (08:08)
[2018-08-26] MEDS: Sodium Chloride 0.9% 10 ML Syringe FLUSH PRN ×2 (08:19→14:38)
--- NOTE | 2018-08-26 12:58 | PCM.PN ---
- General Info Date of Service: 08/26/18 Admission Dx/Problem (Free Text): Elevated Blood pressure BPPV Inner ear infection Hx Afib Functional Status: Reports: Pain Controlled - Review of Systems General: Reports: Weakness, Fatigue HEENT: Reports: Other (patient doctoring for eye issues, previous history of inner ear infection) Pulmonary: Reports: No Symptoms Cardiovascular: Reports: Lightheadedness Gastrointestinal: Reports: No Symptoms Genitourinary: Reports: No Symptoms Musculoskeletal: Reports: No Symptoms Skin: Reports: No Symptoms Neurological: Reports: Dizziness Psychiatric: Reports: No Symptoms - Patient Data Vitals - Most Recent: Last Vital Signs Temp 98.6 F 08/26/18 12:00 Pulse 104 H 08/26/18 12:00 Resp 18 08/26/18 12:00 BP 115/93 H 08/26/18 12:00 Pulse Ox 99 08/26/18 12:00 Orthostatic Blood Pressure [ 107/81 Standing] Orthostatic Blood Pressure [ 116/78 Sitting] Orthostatic Blood Pressure [ 130/85 Supine] Weight - Most Recent: 224 lb 4.808 oz I&O - Last 24 Hours: Intake & Output 08/25/18 08/26/18 08/26/18 22:59 06:59 14:59 Output Total 925 1150 950 Balance -925 -1150 -950 Lab Results Last 24 Hours: Laboratory Results - last 24 hr 08/25/18 08/25/18 08/25/18 Range/Units 16:02 16:02 16:02 WBC 11.0 H (4.0-10.2) K/uL RBC 4.46 (4.33-5.41) M/uL Hgb 14.2 (13.1-16.8) g/dL Hct 41.3 (39.0-49.0) % MCV 92.6 (84.0-98.0) fL MCH 31.8 (28.2-33.3) pg MCHC 34.4 (31.7-36.0) g/dL RDW 13.0 (11.2-14.1) % Plt Count 251 (150-350) K/uL Neut % (Auto) 58.0 (45.0-80.0) % Lymph % (Auto) 32.2 (10.0-50.0) % [place] % (Auto) 6.8 (2.0-14.0) % Eos % (Auto) 1.9 (0.0-5.0) % Baso % (Auto) 1.1 (0.0-2.0) % Neut # (Auto) 6.40 (1.40-7.00) K/uL Lymph # (Auto) 3.56 H (0.50-3.50) K/uL [place] # (Auto) 0.75 (0.00-1.00) K/uL Eos # (Auto) 0.21 (0.00-0.50) K/uL Baso # (Auto) 0.12 (0.00-0.20) K/uL PT 10.4 (9.5-12.0) SEC INR 1.0 APTT 27.1 (21.0-31.3) SEC D-Dimer, Quantitative 209 (0-400) ng/mL Sodium (136-145) mmol/L Potassium (3.5-5.1) mmol/L Chloride (98-107) mmol/L Carbon Dioxide (21.0-32.0) mmol/L BUN (7-18) mg/dL Creatinine (0.51-1.17) mg/dL Est Cr Clr Drug Dosing Estimated GFR (MDRD) mL/min Glucose (74-106) mg/dL Hemoglobin A1c (4.3-5.7) % Lactic Acid (0.4-2.0) mmol/L Uric Acid (2.6-7.2) mg/dL Calcium (8.5-10.1) mg/dL Magnesium (1.8-2.4) mg/dL Total Bilirubin (0.2-1.0) mg/dL AST (15-37) U/L ALT (12-78) U/L Alkaline Phosphatase (46-116) IU/L Creatine Kinase (26-308) U/L Creatine Kinase Index (0.0-2.5) % CK-MB (CK-2) (0.00-3.60) ng/mL Troponin I (0.000-0.056) ng/mL NT-Pro-B Natriuret Pep (0-125) pg/mL Total Protein (6.4-8.2) g/dL Albumin (3.4-5.0) g/dL Triglycerides (30-150) mg/dL Cholesterol (100-200) mg/dL LDL Cholesterol, Calc (0-100) mg/dL HDL Cholesterol (40-60) mg/dL TSH, Ultra Sensitive (0.358-3.740) mIU/mL Specimen Type Urine Color Urine Appearance Urine pH (5.0-9.0) Ur Specific [place] (1.005-1.030) Urine Protein (NEGATIVE) mg/dL Urine Glucose (UA) (NEGATIVE) mg/dL Urine Ketones (NEGATIVE) mg/dL Urine Occult Blood (NEGATIVE) Urine Nitrite (NEGATIVE) Urine Bilirubin (NEGATIVE) Urine Urobilinogen (0.2-1.0) E.U./dL Ur Leukocyte Esterase (NEGATIVE) Urine RBC /HPF Urine WBC /HPF Ur Epithelial Cells /LPF Urine Bacteria (NONE TO FEW) /HPF 08/25/18 08/25/18 08/25/18 Range/Units 16:02 16:02 17:54 WBC (4.0-10.2) K/uL RBC (4.33-5.41) M/uL Hgb (13.1-16.8) g/dL Hct (39.0-49.0) % MCV (84.0-98.0) fL MCH (28.2-33.3) pg MCHC (31.7-36.0) g/dL RDW (11.2-14.1) % Plt Count (150-350) K/uL Neut % (Auto) (45.0-80.0) % Lymph % (Auto) (10.0-50.0) % [place] % (Auto) (2.0-14.0) % Eos % (Auto) (0.0-5.0) % Baso % (Auto) (0.0-2.0) % Neut # (Auto) (1.40-7.00) K/uL Lymph # (Auto) (0.50-3.50) K/uL [place] # (Auto) (0.00-1.00) K/uL Eos # (Auto) (0.00-0.50) K/uL Baso # (Auto) (0.00-0.20) K/uL PT (9.5-12.0) SEC INR APTT (21.0-31.3) SEC D-Dimer, Quantitative (0-400) ng/mL Sodium 137 (136-145) mmol/L Potassium 4.0 (3.5-5.1) mmol/L Chloride 101 (98-107) mmol/L Carbon Dioxide 29.5 (21.0-32.0) mmol/L BUN 22 H (7-18) mg/dL Creatinine 1.27 H (0.51-1.17) mg/dL Est Cr Clr Drug Dosing TNP Estimated GFR (MDRD) 55 mL/min Glucose 291 H (74-106) mg/dL Hemoglobin A1c (4.3-5.7) % Lactic Acid 0.8 (0.4-2.0) mmol/L Uric Acid 5.0 (2.6-7.2) mg/dL Calcium 8.9 (8.5-10.1) mg/dL Magnesium 1.6 L (1.8-2.4) mg/dL Total Bilirubin 0.8 (0.2-1.0) mg/dL AST 14 L (15-37) U/L ALT 30 (12-78) U/L Alkaline Phosphatase 89 (46-116) IU/L Creatine Kinase 62 (26-308) U/L Creatine Kinase Index 2.3 (0.0-2.5) % CK-MB (CK-2) 1.40 (0.00-3.60) ng/mL Troponin I 0.017 (0.000-0.056) ng/mL NT-Pro-B Natriuret Pep 321 H (0-125) pg/mL Total Protein 6.9 (6.4-8.2) g/dL Albumin 3.1 L (3.4-5.0) g/dL Triglycerides (30-150) mg/dL Cholesterol (100-200) mg/dL LDL Cholesterol, Calc (0-100) mg/dL HDL Cholesterol (40-60) mg/dL TSH, Ultra Sensitive 3.397 (0.358-3.740) mIU/mL Specimen Type Urinvoid Urine Color Yellow Urine Appearance Clear Urine pH 5.0 (5.0-9.0) Ur Specific [place] 1.015 (1.005-1.030) Urine Protein 100 H (NEGATIVE) mg/dL Urine Glucose (UA) 250 H (NEGATIVE) mg/dL Urine Ketones Negative (NEGATIVE) mg/dL Urine Occult Blood Trace-lysed H (NEGATIVE) Urine Nitrite Negative (NEGATIVE) Urine Bilirubin Negative (NEGATIVE) Urine Urobilinogen 0.2 (0.2-1.0) E.U./dL Ur Leukocyte Esterase Negative (NEGATIVE) Urine RBC 0-5 /HPF Urine WBC 0-5 /HPF Ur Epithelial Cells Rare /LPF Urine Bacteria Rare (NONE TO FEW) /HPF 08/25/18 08/26/18 08/26/18 Range/Units 21:40 07:00 07:00 WBC 10.1 (4.0-10.2) K/uL RBC 4.37 (4.33-5.41) M/uL Hgb 13.9 (13.1-16.8) g/dL Hct 40.4 (39.0-49.0) % MCV 92.4 (84.0-98.0) fL MCH 31.8 (28.2-33.3) pg MCHC 34.4 (31.7-36.0) g/dL RDW 12.9 (11.2-14.1) % Plt Count 245 (150-350) K/uL Neut % (Auto) 61.4 (45.0-80.0) % Lymph % (Auto) 25.4 (10.0-50.0) % [place] % (Auto) 9.2 (2.0-14.0) % Eos % (Auto) 3.3 (0.0-5.0) % Baso % (Auto) 0.7 (0.0-2.0) % Neut # (Auto) 6.23 (1.40-7.00) K/uL Lymph # (Auto) 2.57 (0.50-3.50) K/uL [place] # (Auto) 0.93 (0.00-1.00) K/uL Eos # (Auto) 0.33 (0.00-0.50) K/uL Baso # (Auto) 0.07 (0.00-0.20) K/uL PT (9.5-12.0) SEC INR APTT (21.0-31.3) SEC D-Dimer, Quantitative (0-400) ng/mL Sodium 141 (136-145) mmol/L Potassium 4.6 (3.5-5.1) mmol/L Chloride 105 (98-107) mmol/L Carbon Dioxide 28.6 (21.0-32.0) mmol/L BUN 26 H (7-18) mg/dL Creatinine 1.50 H (0.51-1.17) mg/dL Est Cr Clr Drug Dosing 49.47 Estimated GFR (MDRD) 46 mL/min Glucose 329 H (74-106) mg/dL Hemoglobin A1c (4.3-5.7) % Lactic Acid (0.4-2.0) mmol/L Uric Acid (2.6-7.2) mg/dL Calcium 9.0 (8.5-10.1) mg/dL Magnesium (1.8-2.4) mg/dL Total Bilirubin 0.6 (0.2-1.0) mg/dL AST 13 L (15-37) U/L ALT 27 (12-78) U/L Alkaline Phosphatase 81 (46-116) IU/L Creatine Kinase 54 46 (26-308) U/L Creatine Kinase Index 2.0 2.0 (0.0-2.5) % CK-MB (CK-2) 1.10 0.90 (0.00-3.60) ng/mL Troponin I 0.016 0.012 (0.000-0.056) ng/mL NT-Pro-B Natriuret Pep 209 H (0-125) pg/mL Total Protein 6.6 (6.4-8.2) g/dL Albumin 2.9 L (3.4-5.0) g/dL Triglycerides 144 (30-150) mg/dL Cholesterol 112 (100-200) mg/dL LDL Cholesterol, Calc 52 (0-100) mg/dL HDL Cholesterol 31 L (40-60) mg/dL TSH, Ultra Sensitive (0.358-3.740) mIU/mL Specimen Type Urine Color Urine Appearance Urine pH (5.0-9.0) Ur Specific [place] (1.005-1.030) Urine Protein (NEGATIVE) mg/dL Urine Glucose (UA) (NEGATIVE) mg/dL Urine Ketones (NEGATIVE) mg/dL Urine Occult Blood (NEGATIVE) Urine Nitrite (NEGATIVE) Urine Bilirubin (NEGATIVE) Urine Urobilinogen (0.2-1.0) E.U./dL Ur Leukocyte Esterase (NEGATIVE) Urine RBC /HPF Urine WBC /HPF Ur Epithelial Cells /LPF Urine Bacteria (NONE TO FEW) /HPF 08/26/18 Range/Units 07:00 WBC (4.0-10.2) K/uL RBC (4.33-5.41) M/uL Hgb (13.1-16.8) g/dL Hct (39.0-49.0) % MCV (84.0-98.0) fL MCH (28.2-33.3) pg MCHC (31.7-36.0) g/dL RDW (11.2-14.1) % Plt Count (150-350) K/uL Neut % (Auto) (45.0-80.0) % Lymph % (Auto) (10.0-50.0) % [place] % (Auto) (2.0-14.0) % Eos % (Auto) (0.0-5.0) % Baso % (Auto) (0.0-2.0) % Neut # (Auto) (1.40-7.00) K/uL Lymph # (Auto) (0.50-3.50) K/uL [place] # (Auto) (0.00-1.00) K/uL Eos # (Auto) (0.00-0.50) K/uL Baso # (Auto) (0.00-0.20) K/uL PT (9.5-12.0) SEC INR APTT (21.0-31.3) SEC D-Dimer, Quantitative (0-400) ng/mL Sodium (136-145) mmol/L Potassium (3.5-5.1) mmol/L Chloride (98-107) mmol/L Carbon Dioxide (21.0-32.0) mmol/L BUN (7-18) mg/dL Creatinine (0.51-1.17) mg/dL Est Cr Clr Drug Dosing Estimated GFR (MDRD) mL/min Glucose (74-106) mg/dL Hemoglobin A1c 9.1 H (4.3-5.7) % Lactic Acid (0.4-2.0) mmol/L Uric Acid (2.6-7.2) mg/dL Calcium (8.5-10.1) mg/dL Magnesium (1.8-2.4) mg/dL Total Bilirubin (0.2-1.0) mg/dL AST (15-37) U/L ALT (12-78) U/L Alkaline Phosphatase (46-116) IU/L Creatine Kinase (26-308) U/L Creatine Kinase Index (0.0-2.5) % CK-MB (CK-2) (0.00-3.60) ng/mL Troponin I (0.000-0.056) ng/mL NT-Pro-B Natriuret Pep (0-125) pg/mL Total Protein (6.4-8.2) g/dL Albumin (3.4-5.0) g/dL Triglycerides (30-150) mg/dL Cholesterol (100-200) mg/dL LDL Cholesterol, Calc (0-100) mg/dL HDL Cholesterol (40-60) mg/dL TSH, Ultra Sensitive (0.358-3.740) mIU/mL Specimen Type Urine Color Urine Appearance Urine pH (5.0-9.0) Ur Specific [place] (1.005-1.030) Urine Protein (NEGATIVE) mg/dL Urine Glucose (UA) (NEGATIVE) mg/dL Urine Ketones (NEGATIVE) mg/dL Urine Occult Blood (NEGATIVE) Urine Nitrite (NEGATIVE) Urine Bilirubin (NEGATIVE) Urine Urobilinogen (0.2-1.0) E.U./dL Ur Leukocyte Esterase (NEGATIVE) Urine RBC /HPF Urine WBC /HPF Ur Epithelial Cells /LPF Urine Bacteria (NONE TO FEW) /HPF [place] Results Last 24 Hours: Microbiology 08/25/18 17:54 Urine Culture - Preliminary Urine, Clean Catch NO GROWTH AFTER 1 DAY Med Orders - Current: Current Medications Acetaminophen (Tylenol) 650 mg PO Q4H PRN PRN Reason: Pain Aspirin (Aspirin) 81 mg PO WITHBREAKFAST [facility] Last Admin: 08/26/18 08:06 Dose: 81 mg Atorvastatin Calcium (Lipitor) 10 mg PO BEDTIME [facility] Last Admin: 08/25/18 20:08 Dose: 10 mg Finasteride (Proscar) 5 mg PO DAILY [facility] Last Admin: 08/26/18 08:08 Dose: 5 mg Fish Oil (Fish Oil) 1 gm PO DAILY [facility] Last Admin: 08/26/18 08:07 Dose: 1 gm Furosemide (Lasix) 40 mg IVPUSH DAILY [facility] Glipizide (Glucotrol Xl) 10 mg PO BID [facility] Last Admin: 08/26/18 08:07 Dose: 10 mg Levofloxacin/Dextrose 500 mg/ (Premix) 100 mls @ 100 mls/hr IV Q24H [facility] Last Admin: 08/25/18 18:54 Dose: 100 mls/hr Levothyroxine Sodium (Levothyroxine) 150 mcg PO ACBREAKFAST [facility] Last Admin: 08/26/18 08:05 Dose: 150 mcg Lisinopril (Prinivil) 20 mg PO BID [facility] Last Admin: 08/26/18 08:08 Dose: 20 mg Magnesium Oxide (Magnesium Oxide) 400 mg PO BID [facility] Last Admin: 08/26/18 08:08 Dose: 400 mg Meclizine HCl (Antivert) 25 mg PO TID [facility] Last Admin: 08/26/18 12:27 Dose: 25 mg Metformin HCl (Glucophage) 1,000 mg PO BID [facility] Last Admin: 08/26/18 08:07 Dose: 1,000 mg Nicotine (Habitrol) 21 mg TRDERM QPM [facility] Last Admin: 08/25/18 18:54 Dose: 21 mg Ciprofloxacin/Dexamethasone Otic Suspension 0.3%/0.1% Own Med 0 drop EARBOTH BID [facility] Last Admin: 08/26/18 08:06 Dose: 4 drop Potassium Chloride (Klor-Con M20) 20 meq PO TID [facility] Last Admin: 08/26/18 12:27 Dose: 20 meq Sodium Chloride (Saline Flush) 10 ml FLUSH ASDIRECTED PRN PRN Reason: Keep Vein Open Last Admin: 08/26/18 08:19 Dose: 10 ml Sodium Chloride (Saline Flush) 10 ml FLUSH Q12HR PRN PRN Reason: Keep Vein Open Last Admin: 08/25/18 19:02 Dose: 10 ml Spironolactone (Aldactone) 12.5 mg PO BID [facility] Last Admin: 08/26/18 08:05 Dose: 12.5 mg Temazepam (Restoril) 15 mg PO BEDTIME PRN PRN Reason: Insomnia Discontinued Medications Famotidine (Pepcid) 40 mg IVPUSH ONETIME ONE Stop: 08/25/18 16:01 Last Admin: 08/25/18 16:13 Dose: 40 mg Furosemide (Lasix) 60 mg IVPUSH NOW ONE Stop: 08/25/18 17:08 Last Admin: 08/25/18 17:16 Dose: 60 mg Furosemide (Lasix) 40 mg IVPUSH Q8H [facility] Last Admin: 08/26/18 08:13 Dose: 40 mg Metoprolol Tartrate (Lopressor) 2.5 mg IVPUSH ONETIME ONE Stop: 08/25/18 16:01 Last Admin: 08/25/18 16:08 Dose: 2.5 mg Non-Formulary Medication (Douglas-3 Fatty Acids [Fish Oil]) 1 tab PO DAILY [facility] Ciprofloxacin/Dexamethasone Otic Suspension 0.3%/0.1% Own Med 0 drop OT BID [facility] Last Admin: 08/25/18 22:11 Dose: Not Given Ciprofloxacin/Dexamethasone Otic Suspension 0.3%/0.1% Own Med 0 drop EARBOTH BID [facility] - Exam General: Alert, Oriented, Cooperative, No Acute Distress HEENT: Pupils Equal, Pupils Reactive, EOMI, Mucous Membr. Moist/[place]ck: Supple, Trachea Midline, No JVD Lungs: Clear to Auscultation, Normal Respiratory Effort Cardiovascular: Regular Rate, Regular Rhythm (occasional PVC's noted), Other GI/Abdominal Exam: Normal Bowel Sounds, Soft, Non-Tender, No Organomegaly, No Distention Back Exam: Normal Inspection, Full Range of Motion Extremities: Normal Inspection, Normal Range of Motion, Non-Tender, No Pedal Edema, Normal Capillary Refill Peripheral Pulses: 1+: Dorsalis Pedis (L), Dorsalis Pedis (R) Skin: Warm, Dry, Intact Neurological: No New Focal Deficit, Strength Equal Bilateral, Reflexes Equal Bilateral Psy/Mental Status: Alert, Normal Affect, Normal Mood EKG INTERPRETATION EKG Date: 08/26/18 - Problem List Review Problem List Initiated/Reviewed/Updated: Yes - My Orders Last 24 Hours: My Active Orders 08/26/18 10:19 Communication Order [RC] ROUTINE 08/27/18 08:00 Furosemide [Lasix] 40 mg IVPUSH DAILY - Plan Plan:: 08/26/2018 Patient was admitted for elevated blood pressure and vertigo. Recently returned from a visit in [place], started to feel dizzy a couple days to coming back home. Patient states doctoring for "worms in his eye" with an eye doctor and recently had inner ear infection. Patient was initially started on IV Lasix Q8H, nursing states patient got more dizzy when after giving this morning IV Lasix dose. patient states when he goes from laying to sitting at edge of bed the vertigo is not bad but when he goes to stand up he has the room spinning. Denies chest pain or shortness of breath. Positive orthostatic blood pressures noted, IV Lasix adjusted. Patient doctors at [facility] with cardiology (appointment 2018) and nephrology. He was started on spironolactone per radio station engineer for proteinuria but ended up stopping after 4 days due to urinary retention and muscle weakness ( medication stopped per himself). Patient has known Afib and CVA, not on coumadin or Eliquis or Xarelto due to bruising on arms. states cardiology has the patient on aspirin twice a day fish oil. Reviewed labs and plan of care with patient and family, agreed to stay here in [place]. Continue on telemetry. Discussed case with Dr Bustos who will make medication adjustments. Patient had no further questions. Delia Euceda,CHIEF [employer]
[2018-08-26] MEDS: Sodium Chloride 0.9% 1,000 ML IV SCH (14:37)
[2018-08-26] MEDS: Diltiazem 180 MG Cap.CD PO SCH (19:03)
[2018-08-26] MEDS: Nicotine 21 MG/24 Hr Patch TRDERM SCH (19:03)
[2018-08-26] MEDS: Insulin Lispro 100 Units/ML 3 ML Vial SUBCUT SCH (19:04)
[2018-08-26] MEDS: Levofloxacin/Dextrose 5%-Water 500 MG in Premix Bag 1 BAG IV SCH (19:04)
[2018-08-26] MEDS: atorvaSTATin 10 MG Tab PO SCH (20:39)
[2018-08-26] MEDS: Metoprolol Tartrate 25 MG Tab PO SCH (20:39)
[2018-08-26] MEDS: Sodium Chloride 0.9% 10 ML Syringe FLUSH SCH (20:42)
[2018-08-27] MEDS: Sodium Chloride 0.9% 1,000 ML IV SCH (03:21)
[2018-08-27] MEDS: Metoprolol Tartrate 25 MG Tab PO SCH (07:32)
[2018-08-27] MEDS: Levothyroxine 150 MCG Tab PO SCH (07:33)
[2018-08-27] MEDS: Fish Oil/Omega-3 Fatty Acids 1 Gm Cap PO SCH (07:33)
[2018-08-27] MEDS: Meclizine 25 MG Tab PO SCH ×3 (07:34→17:47)
[2018-08-27] MEDS: Aspirin 81 MG Tab.Chew PO SCH (07:34)
[2018-08-27] MEDS: glipiZIDE 5 MG Tab.ER PO SCH (07:35)
[2018-08-27] MEDS: Insulin Lispro 100 Units/ML 3 ML Vial SUBCUT SCH ×3 (07:37→17:49)
[2018-08-27] MEDS: Finasteride 5 MG Tab PO SCH (07:38)
[2018-08-27] MEDS: Sodium Chloride 0.9% 10 ML Syringe FLUSH SCH ×2 (07:39→19:47)
[2018-08-27] MEDS: DEXAMETHASONE EARBOTH SCH ×2 (07:40→17:49)
[2018-08-27] MEDS: CIPROFLOXACIN EARBOTH SCH ×2 (07:40→17:49)
[2018-08-27] MEDS ORDERED: Furosemide 40 MG/4 ML VIAL IVPUSH SCH (08:00)
[2018-08-27] MEDS ORDERED: Lisinopril 20 MG Tab PO SCH (12:30)
[2018-08-27] MEDS: Sodium Chloride 0.9% 10 ML Syringe FLUSH PRN (15:15)
[2018-08-27] MEDS ORDERED: Furosemide 40 MG/4 ML VIAL IVPUSH ONE (15:15)
--- NOTE | 2018-08-27 15:27 | PCM.PN ---
- General Info Date of Service: 08/27/18 Admission Dx/Problem (Free Text): Elevated Blood pressure BPPV Inner ear infection Hx Afib Functional Status: Reports: Pain Controlled, Tolerating Diet, Other (no vertigo , no dizziness since this morning) - Review of Systems General: Reports: No Symptoms HEENT: Reports: Other (hardness of hearing, chronic significant otitis externa R >L) Pulmonary: Reports: Shortness of Breath Cardiovascular: Reports: Orthopnea Gastrointestinal: Reports: No Symptoms Genitourinary: Reports: No Symptoms Musculoskeletal: Reports: No Symptoms Skin: Reports: No Symptoms Neurological: Reports: Dizziness (improved), Pre-Existing Deficit (s/p CVA mild right jeovany-paresis), Other (no nystagmus) Psychiatric: Reports: No Symptoms - Patient Data Vitals - Most Recent: Last Vital Signs Temp 97.3 F 08/27/18 11:23 Pulse 52 L 08/27/18 11:23 Resp 17 08/27/18 11:23 BP 153/81 H 08/27/18 13:32 Pulse Ox 100 08/27/18 11:23 Orthostatic Blood Pressure [ 107/81 Standing] Orthostatic Blood Pressure [ 116/78 Sitting] Orthostatic Blood Pressure [ 130/85 Supine] Weight - Most Recent: 225 lb 8 oz I&O - Last 24 Hours: Intake & Output 08/27/18 08/27/18 08/27/18 06:59 14:59 22:59 Intake Total 1120 1500 Output Total 400 525 Balance 720 975 Lab Results Last 24 Hours: Laboratory Results - last 24 hr 08/26/18 08/27/18 08/27/18 Range/Units 17:56 07:11 07:30 WBC 7.9 (4.0-10.2) K/uL RBC 4.42 (4.33-5.41) M/uL Hgb 14.1 (13.1-16.8) g/dL Hct 41.2 (39.0-49.0) % MCV 93.2 (84.0-98.0) fL MCH 31.9 (28.2-33.3) pg MCHC 34.2 (31.7-36.0) g/dL RDW 13.0 (11.2-14.1) % Plt Count 222 (150-350) K/uL Neut % (Auto) 59.6 (45.0-80.0) % Lymph % (Auto) 26.1 (10.0-50.0) % [place] % (Auto) 9.8 (2.0-14.0) % Eos % (Auto) 3.7 (0.0-5.0) % Baso % (Auto) 0.8 (0.0-2.0) % Neut # (Auto) 4.70 (1.40-7.00) K/uL Lymph # (Auto) 2.06 (0.50-3.50) K/uL [place] # (Auto) 0.77 (0.00-1.00) K/uL Eos # (Auto) 0.29 (0.00-0.50) K/uL Baso # (Auto) 0.06 (0.00-0.20) K/uL Sodium (136-145) mmol/L Potassium (3.5-5.1) mmol/L Chloride (98-107) mmol/L Carbon Dioxide (21.0-32.0) mmol/L BUN (7-18) mg/dL Creatinine (0.51-1.17) mg/dL Est Cr Clr Drug Dosing mL/min Estimated GFR (MDRD) mL/min Glucose (74-106) mg/dL POC Glucose 354 H* 276 H* (65-110) mg/dl Calcium (8.5-10.1) mg/dL Magnesium (1.8-2.4) mg/dL Total Bilirubin (0.2-1.0) mg/dL AST (15-37) U/L ALT (12-78) U/L Alkaline Phosphatase (46-116) IU/L Total Protein (6.4-8.2) g/dL Albumin (3.4-5.0) g/dL 08/27/18 08/27/18 Range/Units 07:30 11:43 WBC (4.0-10.2) K/uL RBC (4.33-5.41) M/uL Hgb (13.1-16.8) g/dL Hct (39.0-49.0) % MCV (84.0-98.0) fL MCH (28.2-33.3) pg MCHC (31.7-36.0) g/dL RDW (11.2-14.1) % Plt Count (150-350) K/uL Neut % (Auto) (45.0-80.0) % Lymph % (Auto) (10.0-50.0) % [place] % (Auto) (2.0-14.0) % Eos % (Auto) (0.0-5.0) % Baso % (Auto) (0.0-2.0) % Neut # (Auto) (1.40-7.00) K/uL Lymph # (Auto) (0.50-3.50) K/uL [place] # (Auto) (0.00-1.00) K/uL Eos # (Auto) (0.00-0.50) K/uL Baso # (Auto) (0.00-0.20) K/uL Sodium 140 (136-145) mmol/L Potassium 4.4 (3.5-5.1) mmol/L Chloride 103 (98-107) mmol/L Carbon Dioxide 27.9 (21.0-32.0) mmol/L BUN 25 H (7-18) mg/dL Creatinine 1.34 H (0.51-1.17) mg/dL Est Cr Clr Drug Dosing 55.40 mL/min Estimated GFR (MDRD) 52 mL/min Glucose 297 H (74-106) mg/dL POC Glucose 212 H (65-110) mg/dl Calcium 9.0 (8.5-10.1) mg/dL Magnesium 1.6 L (1.8-2.4) mg/dL Total Bilirubin 0.8 (0.2-1.0) mg/dL AST 10 L (15-37) U/L ALT 24 (12-78) U/L Alkaline Phosphatase 83 (46-116) IU/L Total Protein 6.8 (6.4-8.2) g/dL Albumin 3.0 L (3.4-5.0) g/dL Med Orders - Current: Current Medications Acetaminophen (Tylenol) 650 mg PO Q4H PRN PRN Reason: Pain Aspirin (Aspirin) 160 mg PO WITHBREAKFAST SURINDER Last Admin: 08/27/18 07:34 Dose: 160 mg Atorvastatin Calcium (Lipitor) 10 mg PO BEDTIME SURINDER Last Admin: 08/26/18 20:39 Dose: 10 mg Diltiazem HCl (Cardizem Cd) 180 mg PO DAILY@1800 [facility] Last Admin: 08/26/18 19:03 Dose: Not Given Finasteride (Proscar) 5 mg PO DAILY [facility] Last Admin: 08/27/18 07:38 Dose: 5 mg Fish Oil (Fish Oil) 1 gm PO DAILY [facility] Last Admin: 08/27/18 07:33 Dose: 1 gm Furosemide (Lasix) 40 mg IVPUSH DAILY [facility] Glipizide (Glucotrol Xl) 10 mg PO BID [facility] Last Admin: 08/27/18 07:35 Dose: 10 mg Levofloxacin/Dextrose 500 mg/ (Premix) 100 mls @ 100 mls/hr IV Q24H [facility] Last Admin: 08/26/18 19:04 Dose: Not Given Insulin Glargine (Lantus) 10 unit SUBCUT BEDTIME [facility] Insulin Human Lispro (Humalog) 0 unit SUBCUT TID [facility]; Protocol Last Admin: 08/27/18 11:58 Dose: 4 units Levothyroxine Sodium (Levothyroxine) 150 mcg PO ACBREAKFAST [facility] Last Admin: 08/27/18 07:33 Dose: 150 mcg Lisinopril (Prinivil) 20 mg PO Q12HR [facility] Magnesium Oxide (Magnesium Oxide) 800 mg PO BID [facility] Meclizine HCl (Antivert) 25 mg PO TID [facility] Last Admin: 08/27/18 11:58 Dose: 25 mg Nicotine (Habitrol) 21 mg TRDERM QPM [facility] Last Admin: 08/26/18 19:03 Dose: Not Given Ciprofloxacin/Dexamethasone Otic Suspension 0.3%/0.1% Own Med 0 drop EARBOTH BID [facility] Last Admin: 08/27/18 07:40 Dose: 4 drop Senna/Docusate Sodium (Senna Plus) 1 tab PO BID PRN PRN Reason: Constipation Last Admin: 08/27/18 15:14 Dose: 1 tab Sodium Chloride (Saline Flush) 10 ml FLUSH ASDIRECTED PRN PRN Reason: Keep Vein Open Last Admin: 08/27/18 15:15 Dose: 10 ml Sodium Chloride (Saline Flush) 10 ml FLUSH Q12HR [facility] Last Admin: 08/27/18 07:39 Dose: 10 ml Temazepam (Restoril) 15 mg PO BEDTIME PRN PRN Reason: Insomnia Discontinued Medications Aspirin (Aspirin) 81 mg PO WITHBREAKFAST [facility] Last Admin: 08/26/18 08:06 Dose: 81 mg Famotidine (Pepcid) 40 mg IVPUSH ONETIME ONE Stop: 08/25/18 16:01 Last Admin: 08/25/18 16:13 Dose: 40 mg Furosemide (Lasix) 60 mg IVPUSH NOW ONE Stop: 08/25/18 17:08 Last Admin: 08/25/18 17:16 Dose: 60 mg Furosemide (Lasix) 40 mg IVPUSH Q8H [facility] Last Admin: 08/26/18 08:13 Dose: 40 mg Furosemide (Lasix) 40 mg IVPUSH DAILY [facility] Furosemide (Lasix) 40 mg IVPUSH ONETIME ONE Stop: 08/27/18 15:16 Last Admin: 08/27/18 15:14 Dose: 40 mg Sodium Chloride (Normal Saline) 1,000 mls @ 100 mls/hr IV ASDIRECTED [facility] Last Admin: 08/27/18 03:21 Dose: 100 mls/hr Lisinopril (Prinivil) 20 mg PO BID [facility] Last Admin: 08/26/18 08:08 Dose: 20 mg Lisinopril (Prinivil) 20 mg PO DAILY [facility] Last Admin: 08/27/18 13:32 Dose: 20 mg Magnesium Oxide (Magnesium Oxide) 400 mg PO BID [facility] Last Admin: 08/26/18 08:08 Dose: 400 mg Metformin HCl (Glucophage) 1,000 mg PO BID [facility] Last Admin: 08/26/18 08:07 Dose: 1,000 mg Metoprolol Tartrate (Lopressor) 2.5 mg IVPUSH ONETIME ONE Stop: 08/25/18 16:01 Last Admin: 08/25/18 16:08 Dose: 2.5 mg Metoprolol Tartrate (Lopressor) 12.5 mg PO Q12HR [facility] Last Admin: 08/27/18 07:32 Dose: 12.5 mg Non-Formulary Medication ([place]-3 Fatty Acids [Fish Oil]) 1 tab PO DAILY [facility] Ciprofloxacin/Dexamethasone Otic Suspension 0.3%/0.1% Own Med 0 drop OT BID [facility] Last Admin: 08/25/18 22:11 Dose: Not Given Ciprofloxacin/Dexamethasone Otic Suspension 0.3%/0.1% Own Med 0 drop EARBOTH BID [facility] Ciprofloxacin/Dexamethasone Otic Suspension 0.3%/0.1% Own Med 0 drop EARBOTH BID [facility] Last Admin: 08/26/18 08:06 Dose: 4 drop Potassium Chloride (Klor-Con M20) 20 meq PO TID [facility] Last Admin: 08/26/18 12:27 Dose: 20 meq Sodium Chloride (Saline Flush) 10 ml FLUSH Q12HR PRN PRN Reason: Keep Vein Open Last Admin: 08/25/18 19:02 Dose: 10 ml Spironolactone (Aldactone) 12.5 mg PO BID [facility] Last Admin: 08/26/18 08:05 Dose: 12.5 mg - Exam Quality Assessment: DVT Prophylaxis (aspirin) General: Alert, Cooperative, No Acute Distress HEENT: Pupils Equal, Pupils Reactive, Mucous Membr. Moist/[place], Other (hardness of hearing) Neck: Trachea Midline, No JVD Lungs: Normal Respiratory Effort, Decreased Breath Sounds, Rhonchi, Wheezing Cardiovascular: Irregular Rhythm (Male) Exam: Deferred Back Exam: Normal Inspection Extremities: Normal Inspection, Non-Tender, No Pedal Edema Skin: Warm, Dry, Intact Neurological: No New Focal Deficit Psy/Mental Status: Alert, Normal Affect, Normal Mood - Problem List & Annotations (1) Ander second degree AV block SNOMED Code(s): 44172714 Code(s): I44.1 - ATRIOVENTRICULAR BLOCK, SECOND DEGREE Status: Acute Priority: High Current Visit: Yes (2) CHF (congestive heart failure) SNOMED Code(s): 92554916 Code(s): I50.9 - HEART FAILURE, UNSPECIFIED Status: Acute Priority: High Current Visit: Yes Onset Date: 08/25/18 Qualifiers: Heart failure type: unspecified Heart failure chronicity: acute Qualified Code(s): I50.9 - Heart failure, unspecified Annotation/Comment:: 08/27/18 He follows closely at the [facility] cardiology department. He has up-coming appointment August. Echocardiogram to be done at [facility] as indicated. (3) First degree AV block SNOMED Code(s): 989636626 Code(s): I44.0 - ATRIOVENTRICULAR BLOCK, FIRST DEGREE Status: Acute Priority: High Current Visit: Yes Onset Date: 08/25/18 Annotation/Comment: : Newly diagnosed. Patient is uncertain about current medical therapy with medications to be brought to this facility [facility] by his . Discontinue diltiazem, if he is still on this medication. Low Dose IV Lopressor was given for blood pressure control prior to obtaining EKG. No further beta lashaun therapy at this time, however. 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 Further EP studies, cardiology consultation, etc. with patient possibly candidate for an AICD/ pacemaker. Occasional nonsymptomatic PVCs, which were previously present. Possible history of atrial fibrillation in the past? (4) Hypomagnesemia SNOMED Code(s): 331576982 Code(s): E83.42 - HYPOMAGNESEMIA Status: Acute Priority: Medium Current Visit: Yes Onset Date: 08/25/18 (5) Renal insufficiency SNOMED Code(s): 209056703, 704891065 Code(s): N28.9 - DISORDER OF KIDNEY AND URETER, UNSPECIFIED Status: Acute Priority: Medium Current Visit: Yes Onset Date: 02/05/16 Annotation/ Comment:: Probable diabetic nephropathy. Close observation during hospitalization, etc. secondary to IV Lasix therapy. Apparent history of proteinuria with patient followed by a electric organ assembler and checker. (6) COPD (chronic obstructive pulmonary disease) SNOMED Code(s): 44314437 Code(s): J44.9 - CHRONIC OBSTRUCTIVE PULMONARY DISEASE, UNSPECIFIED Status : Chronic Priority: Medium Current Visit: Yes Qualifiers: COPD type: emphysema Emphysema type: panlobular Qualified Code(s): J43.1 - Panlobular emphysema Annotation/Comment:: No recent fever or bronchitic-type symptoms, despite mild leukocytosis as below. (7) Diabetes mellitus SNOMED Code(s): 06942830 Code(s): E11.9 - TYPE 2 DIABETES MELLITUS WITHOUT COMPLICATIONS Status: Chronic Priority: Medium Current Visit: Yes Qualifiers: Diabetes mellitus type: type 2 Diabetes mellitus mcc insulin use: without mcc use Diabetes mellitus complication status: with kidney complications Diabetes mellitus complication detail: with chronic kidney disease Chronic kidney disease stage: stage 2 (mild) Qualified Code(s): E11.22 - Type 2 diabetes mellitus with diabetic chronic kidney disease; N18.2 - Chronic kidney disease, stage 2 (mild) Annotation/Comment:: Patient has not been checking his Accu-Cheks at home. Glycosylated hemoglobin in the a.m. Consider sliding scale depending on his clinical course. (8) Hyperlipidemia SNOMED Code(s): 23424703 Code(s): E78.5 - HYPERLIPIDEMIA, UNSPECIFIED Status: Chronic Priority: Medium Current Visit: Yes Qualifiers: Hyperlipidemia type: unspecified Qualified Code(s): E78.5 - Hyperlipidemia , unspecified Annotation/Comment:: Currently under therapy. Lipid panel in the a.m. Weight loss in moderation advisable. (9) Hypoalbuminemia SNOMED Code(s): 767903690 Code(s): E88.09 - OTH DISORDERS OF PLASMA-PROTEIN METABOLISM, NEC Status: Chronic Priority: Medium Current Visit: Yes Annotation/Comment:: Observe for now. Consider high protein Glucerna supplement depending on his clinical course (10) Hypothyroidism SNOMED Code(s): 72536303 Code(s): E03.9 - HYPOTHYROIDISM, UNSPECIFIED Status: Chronic Priority: Medium Current Visit: Yes Qualifiers: Hypothyroidism type: acquired Qualified Code(s): E03.9 - Hypothyroidism, unspecified Annotation/Comment:: TSH normal today with continuation of current medical therapy. 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 High-dose IV Pepcid given in the emergency room as GI prophylaxis (13) Atrial fibrillation SNOMED Code(s): 32794778 Code(s): I48.91 - UNSPECIFIED ATRIAL FIBRILLATION Status: Acute Priority : High Current Visit: No Onset Date: 02/05/16 Qualifiers: Atrial fibrillation type: paroxysmal Qualified Code(s): I48.0 - Paroxysmal atrial fibrillation Annotation/Comment:: 08/27/18 His telephone clerk has trialed coumadin, eliquis for his paroxysmal atrial fibrillation and he clinical could not tolerate it due to excessive bruising. Log Roper recommendation is for baby aspirin x2 and higher dose fish oil. (14) COPD exacerbation SNOMED Code(s): 808198441, 920603674 Code(s): J44.1 - CHRONIC OBSTRUCTIVE PULMONARY DISEASE W (ACUTE) EXACERBATION Status: Acute Current Visit: No (15) Leukocytosis SNOMED Code(s): 669153287, 441592878 Code(s): D72.829 - ELEVATED WHITE BLOOD CELL COUNT, UNSPECIFIED Status: Acute Priority: High Current Visit: No Onset Date: 02/05/16 Qualifiers: Leukocytosis type: bandemia Qualified Code(s): D72.825 - Bandemia (16) Multifocal PVCs SNOMED Code(s): 50668106 Code(s): I49.3 - VENTRICULAR PREMATURE DEPOLARIZATION Status: Acute Priority: Medium Current Visit: No Onset Date: 02/05/16 Annotation/Comment :: Observe for now with low-dose IV Lopressor given in the emergency room (17) Fusion beats SNOMED Code(s): 50355630, 836527032 Code(s): I49.8 - OTHER SPECIFIED CARDIAC ARRHYTHMIAS Status: Acute Priority: High Current Visit: Yes - Problem List Review Problem List Initiated/Reviewed/Updated: Yes - My Orders Last 24 Hours: My Active Orders 08/26/18 15:45 Consult to Physical Therapy [PT Evaluation and Treatment] [CONS] Routine 08/26/18 18:00 Accu Check [Blood Glucose Check, Bedside] [RC] TIDMEALS Diltiazem [Cardizem CD] 180 mg PO DAILY@1800 Insulin Lispro [HumaLOG] See Dose Instructions SUBCUT TID 08/26/18 20:00 Sodium Chloride 0.9% [Saline Flush] 10 ml FLUSH Q12HR 08/26/18 [employer] Diet [DIET] 08/27/18 05:11 EKG Documentation Completion [RC] ASDIRECTED Chest 2V [CR] Routine 08/27/18 08:00 Aspirin 160 mg PO WITHBREAKFAST 08/27/18 14:58 Docusate Sodium/Sennosides [Senna Plus] 1 tab PO BID PRN 08/27/18 18:00 Magnesium Oxide 800 mg PO BID 08/27/18 20:00 Insulin Glarg,Human.Rec.Analog [LantUS] 10 unit SUBCUT BEDTIME Lisinopril [Prinivil] 20 mg PO Q12HR 08/28/18 05:11 CBC WITH AUTO DIFF [HEME] DAILY CMP [COMPREHENSIVE METABOLIC PN,CMP] [CHEM] DAILY 08/28/18 08:00 Furosemide [Lasix] 40 mg IVPUSH DAILY 08/29/18 05:11 CBC WITH AUTO DIFF [HEME] DAILY CMP [COMPREHENSIVE METABOLIC PN,CMP] [CHEM] DAILY - Plan Plan:: 08/26/2018 Patient was admitted for elevated blood pressure and vertigo. Recently returned from a visit in [place], started to feel dizzy a couple days to coming back home. Patient states doctoring for "worms in his eye" with an eye doctor and recently had inner ear infection. Patient was initially started on IV Lasix Q8H, nursing states patient got more dizzy when after giving this morning IV Lasix dose. patient states when he goes from laying to sitting at edge of bed the vertigo is not bad but when he goes to stand up he has the room spinning. Denies chest pain or shortness of breath. Positive orthostatic blood pressures noted, IV Lasix adjusted. Patient doctors at [facility] with cardiology (appointment 2018) and nephrology. He was started on spironolactone per electric organ assembler and checker for proteinuria but ended up stopping after 4 days due to urinary retention and muscle weakness ( medication stopped per himself). Patient has known Afib and CVA, not on coumadin or Eliquis or Xarelto due to bruising on arms. states cardiology has the patient on aspirin twice a day fish oil. Reviewed labs and plan of care with patient and family, agreed to stay here in [place]. Continue on telemetry. Discussed case with Dr Bustos who will make medication adjustments. Patient had no further questions. Delia Euceda,MICHELLE 08/27/18 Akash Benjamin MD No hospital bed has been available 08/25 or 08/26. Bed not available today until about 1500. I talked with hospitalist air conditioning mechanic Dr. Luis Miguel Martinez and nurse Walt in telephone clerk. Faxed EKGs and telemetry strips to [facility] cardiology department for Dr. Summers to review. Received call back from Dr. Martinez ~[address] 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 So [facility] does not think he needs transfer at this time and [facility] agrees. Continue inpatient status to adjust medications and monitor fluid status, renal status, heart rhythm blood pressure and pulse, magnesium, and electrolytes.
[2018-08-27] MEDS: Diltiazem 180 MG Cap.CD PO SCH (17:46)
[2018-08-27] MEDS: Magnesium Oxide 400 MG Tab PO SCH (17:47)
[2018-08-27] MEDS: Levofloxacin/Dextrose 5%-Water 500 MG in Premix Bag 1 BAG IV SCH (17:54)
[2018-08-27] MEDS: Nicotine 21 MG/24 Hr Patch TRDERM SCH (18:03)
[2018-08-27] MEDS: Lisinopril 20 MG Tab PO SCH (19:46)
[2018-08-27] MEDS: atorvaSTATin 10 MG Tab PO SCH (19:46)
[2018-08-27] MEDS ORDERED: Insulin Glarg,Human.Rec.Analog 100 UNIT/ML ML SUBCUT SCH (20:00)
[2018-08-28] MEDS: Aspirin 81 MG Tab.Chew PO SCH (07:38)
[2018-08-28] MEDS: Levothyroxine 150 MCG Tab PO SCH (07:39)
[2018-08-28] MEDS: Fish Oil/Omega-3 Fatty Acids 1 Gm Cap PO SCH (07:40)
[2018-08-28] MEDS: Finasteride 5 MG Tab PO SCH (07:40)
[2018-08-28] MEDS: Magnesium Oxide 400 MG Tab PO SCH (07:41)
[2018-08-28] MEDS: Meclizine 25 MG Tab PO SCH (07:41)
[2018-08-28] MEDS: Sodium Chloride 0.9% 10 ML Syringe FLUSH SCH (07:44)
[2018-08-28] MEDS: CIPROFLOXACIN EARBOTH SCH (07:45)
[2018-08-28] MEDS: Insulin Lispro 100 Units/ML 3 ML Vial SUBCUT SCH (07:45)
[2018-08-28] MEDS: DEXAMETHASONE EARBOTH SCH (07:45)
[2018-08-28] MEDS ORDERED: Furosemide 40 MG/4 ML VIAL IVPUSH SCH (08:00)
[2018-08-28 08:57] VITALS: BP 142/75
--- NOTE | 2018-08-28 09:06 | PCM.PN ---
- General Info Date of Service: 08/28/18 Admission Dx/Problem (Free Text): Elevated Blood pressure BPPV Inner ear infection Hx Afib Functional Status: Reports: Pain Controlled, Tolerating Diet, Ambulating - Review of Systems General: Reports: No Symptoms HEENT: Reports: No Symptoms Pulmonary: Reports: No Symptoms Cardiovascular: Reports: No Symptoms Gastrointestinal: Reports: No Symptoms Genitourinary: Reports: No Symptoms Musculoskeletal: Reports: No Symptoms Skin: Reports: No Symptoms Neurological: Reports: No Symptoms Psychiatric: Reports: No Symptoms - Patient Data Vitals - Most Recent: Last Vital Signs Temp 97.0 F 08/28/18 08:00 Pulse 58 L 08/28/18 08:00 Resp 18 08/28/18 08:00 BP 142/75 H 08/28/18 08:00 Pulse Ox 97 08/28/18 08:00 Orthostatic Blood Pressure [ 107/81 Standing] Orthostatic Blood Pressure [ 116/78 Sitting] Orthostatic Blood Pressure [ 130/85 Supine] Weight - Most Recent: 223 lb I&O - Last 24 Hours: Intake & Output 08/27/18 08/28/18 08/28/18 22:59 06:59 14:59 Intake Total 1600 200 Output Total 2225 850 Balance -625 -650 Lab Results Last 24 Hours: Laboratory Results - last 24 hr 08/27/18 08/27/18 08/27/18 Range/Units 11:43 16:51 19:50 WBC (4.0-10.2) K/uL RBC (4.33-5.41) M/uL Hgb (13.1-16.8) g/dL Hct (39.0-49.0) % MCV (84.0-98.0) fL MCH (28.2-33.3) pg MCHC (31.7-36.0) g/dL RDW (11.2-14.1) % Plt Count (150-350) K/uL Neut % (Auto) (45.0-80.0) % Lymph % (Auto) (10.0-50.0) % [place] % (Auto) (2.0-14.0) % Eos % (Auto) (0.0-5.0) % Baso % (Auto) (0.0-2.0) % Neut # (Auto) (1.40-7.00) K/uL Lymph # (Auto) (0.50-3.50) K/uL [place] # (Auto) (0.00-1.00) K/uL Eos # (Auto) (0.00-0.50) K/uL Baso # (Auto) (0.00-0.20) K/uL Sodium (136-145) mmol/L Potassium (3.5-5.1) mmol/L Chloride (98-107) mmol/L Carbon Dioxide (21.0-32.0) mmol/L BUN (7-18) mg/dL Creatinine (0.51-1.17) mg/dL Est Cr Clr Drug Dosing mL/min Estimated GFR (MDRD) mL/min Glucose (74-106) mg/dL POC Glucose 212 H 280 H* 237 H (65-110) mg/dl Calcium (8.5-10.1) mg/dL Total Bilirubin (0.2-1.0) mg/dL AST (15-37) U/L ALT (12-78) U/L Alkaline Phosphatase (46-116) IU/L Total Protein (6.4-8.2) g/dL Albumin (3.4-5.0) g/dL 08/28/18 08/28/18 08/28/18 Range/Units 07:05 07:05 07:23 WBC 6.9 (4.0-10.2) K/uL RBC 4.37 (4.33-5.41) M/uL Hgb 13.6 (13.1-16.8) g/dL Hct 40.8 (39.0-49.0) % MCV 93.4 (84.0-98.0) fL MCH 31.1 (28.2-33.3) pg MCHC 33.3 (31.7-36.0) g/dL RDW 13.0 (11.2-14.1) % Plt Count 229 (150-350) K/uL Neut % (Auto) 47.8 (45.0-80.0) % Lymph % (Auto) 32.1 (10.0-50.0) % [place] % (Auto) 13.4 (2.0-14.0) % Eos % (Auto) 5.2 H (0.0-5.0) % Baso % (Auto) 1.5 (0.0-2.0) % Neut # (Auto) 3.29 (1.40-7.00) K/uL Lymph # (Auto) 2.21 (0.50-3.50) K/uL [place] # (Auto) 0.92 (0.00-1.00) K/uL Eos # (Auto) 0.36 (0.00-0.50) K/uL Baso # (Auto) 0.10 (0.00-0.20) K/uL Sodium 139 (136-145) mmol/L Potassium 4.1 (3.5-5.1) mmol/L Chloride 102 (98-107) mmol/L Carbon Dioxide 29.7 (21.0-32.0) mmol/L BUN 23 H (7-18) mg/dL Creatinine 1.30 H (0.51-1.17) mg/dL Est Cr Clr Drug Dosing 57.11 mL/min Estimated GFR (MDRD) 54 mL/min Glucose 296 H (74-106) mg/dL POC Glucose 312 H* (65-110) mg/dl Calcium 9.0 (8.5-10.1) mg/dL Total Bilirubin 0.6 (0.2-1.0) mg/dL AST 18 (15-37) U/L ALT 35 (12-78) U/L Alkaline Phosphatase 86 (46-116) IU/L Total Protein 6.8 (6.4-8.2) g/dL Albumin 3.0 L (3.4-5.0) g/dL Med Orders - Current: Current Medications Acetaminophen (Tylenol) 650 mg PO Q4H PRN PRN Reason: Pain Aspirin (Aspirin) 160 mg PO WITHBREAKFAST [facility] Last Admin: 08/28/18 07:38 Dose: 160 mg Atorvastatin Calcium (Lipitor) 10 mg PO BEDTIME [facility] Last Admin: 08/27/18 19:46 Dose: 10 mg Diltiazem HCl (Cardizem Cd) 180 mg PO DAILY@1800 [facility] Last Admin: 08/27/18 17:46 Dose: 180 mg Finasteride (Proscar) 5 mg PO DAILY [facility] Last Admin: 08/28/18 07:40 Dose: 5 mg Fish Oil (Fish Oil) 1 gm PO DAILY [facility] Last Admin: 08/28/18 07:40 Dose: 1 gm Furosemide (Lasix) 40 mg IVPUSH DAILY [facility] Last Admin: 08/28/18 07:39 Dose: 40 mg Levofloxacin/Dextrose 500 mg/ (Premix) 100 mls @ 100 mls/hr IV Q24H [facility] Last Admin: 08/27/18 17:54 Dose: 100 mls/hr Insulin Glargine (Lantus) 10 unit SUBCUT BEDTIME [facility] Last Admin: 08/27/18 19:47 Dose: 10 units Insulin Human Lispro (Humalog) 0 unit SUBCUT TID [facility]; Protocol Last Admin: 08/28/18 07:45 Dose: 8 units Levothyroxine Sodium (Levothyroxine) 150 mcg PO ACBREAKFAST [facility] Last Admin: 08/28/18 07:39 Dose: 150 mcg Lisinopril (Prinivil) 20 mg PO Q12HR [facility] Last Admin: 08/27/18 19:46 Dose: 20 mg Magnesium Oxide (Magnesium Oxide) 800 mg PO BID [facility] Last Admin: 08/28/18 07:41 Dose: 800 mg Meclizine HCl (Antivert) 25 mg PO TID [facility] Last Admin: 08/28/18 07:41 Dose: 25 mg Nicotine (Habitrol) 21 mg TRDERM QPM [facility] Last Admin: 08/27/18 18:03 Dose: 21 mg Ciprofloxacin/Dexamethasone Otic Suspension 0.3%/0.1% Own Med 0 drop EARBOTH BID [facility] Last Admin: 08/28/18 07:45 Dose: 4 drop Senna/Docusate Sodium (Senna Plus) 1 tab PO BID PRN PRN Reason: Constipation Last Admin: 08/27/18 15:14 Dose: 1 tab Sodium Chloride (Saline Flush) 10 ml FLUSH ASDIRECTED PRN PRN Reason: Keep Vein Open Last Admin: 08/27/18 15:15 Dose: 10 ml Sodium Chloride (Saline Flush) 10 ml FLUSH Q12HR [facility] Last Admin: 08/28/18 07:44 Dose: 10 ml Temazepam (Restoril) 15 mg PO BEDTIME PRN PRN Reason: Insomnia Discontinued Medications Aspirin (Aspirin) 81 mg PO WITHBREAKFAST [facility] Last Admin: 08/26/18 08:06 Dose: 81 mg Famotidine (Pepcid) 40 mg IVPUSH ONETIME ONE Stop: 08/25/18 16:01 Last Admin: 08/25/18 16:13 Dose: 40 mg Furosemide (Lasix) 60 mg IVPUSH NOW ONE Stop: 08/25/18 17:08 Last Admin: 08/25/18 17:16 Dose: 60 mg Furosemide (Lasix) 40 mg IVPUSH Q8H [facility] Last Admin: 08/26/18 08:13 Dose: 40 mg Furosemide (Lasix) 40 mg IVPUSH DAILY [facility] Furosemide (Lasix) 40 mg IVPUSH ONETIME ONE Stop: 08/27/18 15:16 Last Admin: 08/27/18 15:14 Dose: 40 mg Glipizide (Glucotrol Xl) 10 mg PO BID [facility] Last Admin: 08/27/18 07:35 Dose: 10 mg Sodium Chloride (Normal Saline) 1,000 mls @ 100 mls/hr IV ASDIRECTED [facility] Last Admin: 08/27/18 03:21 Dose: 100 mls/hr Lisinopril (Prinivil) 20 mg PO BID [facility] Last Admin: 08/26/18 08:08 Dose: 20 mg Lisinopril (Prinivil) 20 mg PO DAILY [facility] Last Admin: 08/27/18 13:32 Dose: 20 mg Magnesium Oxide (Magnesium Oxide) 400 mg PO BID [facility] Last Admin: 08/26/18 08:08 Dose: 400 mg Metformin HCl (Glucophage) 1,000 mg PO BID [facility] Last Admin: 08/26/18 08:07 Dose: 1,000 mg Metoprolol Tartrate (Lopressor) 2.5 mg IVPUSH ONETIME ONE Stop: 08/25/18 16:01 Last Admin: 08/25/18 16:08 Dose: 2.5 mg Metoprolol Tartrate (Lopressor) 12.5 mg PO Q12HR [facility] Last Admin: 08/27/18 07:32 Dose: 12.5 mg Non-Formulary Medication ([place]-3 Fatty Acids [Fish Oil]) 1 tab PO DAILY [facility] Ciprofloxacin/Dexamethasone Otic Suspension 0.3%/0.1% Own Med 0 drop OT BID [facility] Last Admin: 08/25/18 22:11 Dose: Not Given Ciprofloxacin/Dexamethasone Otic Suspension 0.3%/0.1% Own Med 0 drop EARBOTH BID [facility] Ciprofloxacin/Dexamethasone Otic Suspension 0.3%/0.1% Own Med 0 drop EARBOTH BID [facility] Last Admin: 08/26/18 08:06 Dose: 4 drop Potassium Chloride (Klor-Con M20) 20 meq PO TID [facility] Last Admin: 08/26/18 12:27 Dose: 20 meq Sodium Chloride (Saline Flush) 10 ml FLUSH Q12HR PRN PRN Reason: Keep Vein Open Last Admin: 08/25/18 19:02 Dose: 10 ml Spironolactone (Aldactone) 12.5 mg PO BID [facility] Last Admin: 08/26/18 08:05 Dose: 12.5 mg - Exam General: Alert, Oriented, Cooperative, No Acute Distress HEENT: Pupils Equal, Pupils Reactive, EOMI, Mucous Membr. Moist/[place] Neck: Supple, Trachea Midline, No JVD Lungs: Clear to Auscultation, Normal Respiratory Effort Cardiovascular: Regular Rate, Regular Rhythm GI/Abdominal Exam: Normal Bowel Sounds, Soft, Non-Tender, No Organomegaly, No Distention Extremities: Normal Inspection, Normal Range of Motion, Non-Tender, No Pedal Edema, Normal Capillary Refill Peripheral Pulses: 1+: Dorsalis Pedis (L), Dorsalis Pedis (R) Skin: Warm, Dry, Intact Neurological: No New Focal Deficit Psy/Mental Status: Alert, Normal Affect, Normal Mood - Problem List Review Problem List Initiated/Reviewed/Updated: Yes - Plan Plan:: 08/26/2018 Patient was admitted for elevated blood pressure and vertigo. Recently returned from a visit in [place], started to feel dizzy a couple days to coming back home. Patient states doctoring for "worms in his eye" with an eye doctor and recently had inner ear infection. Patient was initially started on IV Lasix Q8H, nursing states patient got more dizzy when after giving this morning IV Lasix dose. patient states when he goes from laying to sitting at edge of bed the vertigo is not bad but when he goes to stand up he has the room spinning. Denies chest pain or shortness of breath. Positive orthostatic blood pressures noted, IV Lasix adjusted. Patient doctors at [facility] with cardiology (appointment 2018) and nephrology. He was started on spironolactone per dispensing optician apprentice for proteinuria but ended up stopping after 4 days due to urinary retention and muscle weakness ( medication stopped per himself). Patient has known Afib and CVA, not on coumadin or Eliquis or Xarelto due to bruising on arms. states cardiology has the patient on aspirin twice a day fish oil. Reviewed labs and plan of care with patient and family, agreed to stay here in [place]. Continue on telemetry. Discussed case with Dr Bustos who will make medication adjustments. Patient had no further questions. Delia Euceda CNP 08/27/18 Akash Benjamin MD No hospital bed has been available 08/25 or 08/26. Bed not available today until about 1500. I talked with hospitalist cone operator Dr. Luis Miguel Martinez and nurse Walt in call center representative. Faxed EKGs and telemetry strips to [facility] cardiology department for Dr. Summers to review. Received call back from Dr. Martinez ~[address] 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 So [facility] does not think he needs transfer at this time and Gucci agrees. Continue inpatient status to adjust medications and monitor fluid status, renal status, heart rhythm blood pressure and pulse, magnesium, and electrolytes. 08/28/2018 Patient states dizziness is gone and feeling ready to go home. Labs reviewed and discussed with the patient. Patient was started on insulin and agrees to continue at home. Patient states having to do insulin after he had his stroke. Will discharge today and patient will follow up at the clinic next week and bring in blood sugar logs. Patient responded to vestibular exercises, states he was educated on what exercises to do at home. Patient has appointments already set up at the [facility]. Delia Euceda CNP
--- NOTE | 2018-08-28 09:21 | PCM.DCSUM1 ---
Discharge Summary - Hospital Course Free Text/Narrative:: Patient was admitted for elevated blood pressure and vertigo. Patient was treated with aggressive IV Lasix in the ER but was changed to daily due to the patient's Cr increasing. The patient had improvement with his vertigo (BPPV) with physical therapy and IV fluids. Patient's blood pressures improved through out the hospital stay, patient was on telemetry with arrhythmias noted. Dr Bustos consulted with [facility] financial investment adviser who the patient usually sees, no acute changes noted. Diagnosis: Stroke: No - Discharge Data Discharge Date: 08/28/18 Discharge Disposition: Home, Self-Care 01 Condition: Good - Patient Summary/Data Consults: Consultations 08/26/18 15:45 Consult to Physical Therapy [PT Evaluation and Treatment] [CONS] Routine - Patient Instructions Diet: Diabetic Diet Showering/Bathing: May Shower Other/Special Instructions: Patient will need to set up follow up appointment at the [facility] for this week, Bring in blood sugar readings. Will need follow up lab including BMP and Magnesium - Discharge Plan *PRESCRIPTION DRUG MONITORING PROGRAM REVIEWED*: Not Applicable *COPY OF PRESCRIPTION DRUG MONITORING REPORT IN PATIENT JUAN JOSÉ: Not Applicable Prescriptions/Med Rec: Insulin Glarg,Human.Rec.Analog [Lantus] 14 unit SUBCUT BEDTIME 90 Days ml Magnesium Oxide 800 mg PO BID #60 tablet Meclizine [Antivert] 25 mg PO TID PRN #10 tablet PRN Reason: Dizziness Home Medications: Home Meds Aspirin 81 mg PO Q2D 02/27/15 [History] Lisinopril 20 mg PO BID 02/27/15 [History] Loratadine 10 mg PO DAILY PRN 02/27/15 [History] diphenhydrAMINE [Benadryl] 25 mg PO DAILY PRN 02/27/15 [History] Finasteride 5 mg PO DAILY 02/05/16 [History] [place]-3 Fatty Acids [Fish Oil] 1 tab PO DAILY 02/05/16 [History] atorvaSTATin [Lipitor] 10 mg PO BEDTIME 02/05/16 [History] Albuterol/Ipratropium [Combivent Respimat] 2 puff IH QID PRN 08/25/18 [History] Cranberry Conc/C/Bacill Coag [Cranberry Tablet] 1 each PO DAILY PRN 08/25/18 [ History] Diltiazem HCl [Cardizem Cd] 180 mg PO DAILY@18 08/25/18 [History] Levothyroxine 150 mcg PO ACBREAKFAST 08/25/18 [History] Insulin Glarg,Human.Rec.Analog [Lantus] 14 unit SUBCUT BEDTIME 90 Days ml 08/28 [Rx] Magnesium Oxide 800 mg PO BID #60 tablet 08/28/18 [Rx] Meclizine [Antivert] 25 mg PO TID PRN #10 tablet 08/28/18 [Rx] Patient Handouts: Levofloxacin injection, Heart Failure, [id number] Forms: ED Department Discharge Referrals: Marilia Coffman PA [Primary Care Provider] - - Discharge Summary/Plan Comment DC Time >30 min.: No Discharge Summary/Plan Comment: Patient is discharged to home, Will continue on insulin and stay off oral diabetic medications due to his kidney failure. Patient has been instructed on how to administer insulin without any concerns. Will discharge to home with meclizine to use as needed, but patient's vertigo improved with vestibular exercises. Patient will follow up at the clinic this week with labs and review of blood sugars. Patient did not have any other concerns or questions. Delia Euceda CNP - Patient Data Vitals - Most Recent: Last Vital Signs Temp 97.0 F 08/28/18 08:00 Pulse 58 L 08/28/18 08:00 Resp 18 08/28/18 08:00 BP 142/75 H 08/28/18 08:00 Pulse Ox 97 08/28/18 08:00 Orthostatic Blood Pressure [ 107/81 Standing] Orthostatic Blood Pressure [ 116/78 Sitting] Orthostatic Blood Pressure [ 130/85 Supine] Weight - Most Recent: 223 lb I&O - Last 24 hours: Intake & Output 08/27/18 08/28/18 08/28/18 22:59 06:59 14:59 Intake Total 1600 200 Output Total 2225 850 Balance -625 650 Lab Results - Last 24 hrs: Laboratory Results - last 24 hr 08/27/18 08/27/18 08/27/18 Range/Units 11:43 16:51 19:50 WBC (4.0-10.2) K/uL RBC (4.33-5.41) M/uL Hgb (13.1-16.8) g/dL Hct (39.0-49.0) % MCV (84.0-98.0) fL MCH (28.2-33.3) pg MCHC (31.7-36.0) g/dL RDW (11.2-14.1) % Plt Count (150-350) K/uL Neut % (Auto) (45.0-80.0) % Lymph % (Auto) (10.0-50.0) % [place] % (Auto) (2.0-14.0) % Eos % (Auto) (0.0-5.0) % Baso % (Auto) (0.0-2.0) % Neut # (Auto) (1.40-7.00) K/uL Lymph # (Auto) (0.50-3.50) K/uL [place] # (Auto) (0.00-1.00) K/uL Eos # (Auto) (0.00-0.50) K/uL Baso # (Auto) (0.00-0.20) K/uL Sodium (136-145) mmol/L Potassium (3.5-5.1) mmol/L Chloride (98-107) mmol/L Carbon Dioxide (21.0-32.0) mmol/L BUN (7-18) mg/dL Creatinine (0.51-1.17) mg/dL Est Cr Clr Drug Dosing mL/min Estimated GFR (MDRD) mL/min Glucose (74-106) mg/dL POC Glucose 212 H 280 H* 237 H (65-110) mg/dl Calcium (8.5-10.1) mg/dL Total Bilirubin (0.2-1.0) mg/dL AST (15-37) U/L ALT (12-78) U/L Alkaline Phosphatase (46-116) IU/L Total Protein (6.4-8.2) g/dL Albumin (3.4-5.0) g/dL 08/28/18 08/28/18 08/28/18 Range/Units 07:05 07:05 07:23 WBC 6.9 (4.0-10.2) K/uL RBC 4.37 (4.33-5.41) M/uL Hgb 13.6 (13.1-16.8) g/dL Hct 40.8 (39.0-49.0) % MCV 93.4 (84.0-98.0) fL MCH 31.1 (28.2-33.3) pg MCHC 33.3 (31.7-36.0) g/dL RDW 13.0 (11.2-14.1) % Plt Count 229 (150-350) K/uL Neut % (Auto) 47.8 (45.0-80.0) % Lymph % (Auto) 32.1 (10.0-50.0) % Jones % (Auto) 13.4 (2.0-14.0) % Eos % (Auto) 5.2 H (0.0-5.0) % Baso % (Auto) 1.5 (0.0-2.0) % Neut # (Auto) 3.29 (1.40-7.00) K/uL Lymph # (Auto) 2.21 (0.50-3.50) K/uL [place] # (Auto) 0.92 (0.00-1.00) K/uL Eos # (Auto) 0.36 (0.00-0.50) K/uL Baso # (Auto) 0.10 (0.00-0.20) K/uL Sodium 139 (136-145) mmol/L Potassium 4.1 (3.5-5.1) mmol/L Chloride 102 (98-107) mmol/L Carbon Dioxide 29.7 (21.0-32.0) mmol/L BUN 23 H (7-18) mg/dL Creatinine 1.30 H (0.51-1.17) mg/dL Est Cr Clr Drug Dosing 57.11 mL/min Estimated GFR (MDRD) 54 mL/min Glucose 296 H (74-106) mg/dL POC Glucose 312 H* (65-110) mg/dl Calcium 9.0 (8.5-10.1) mg/dL Total Bilirubin 0.6 (0.2-1.0) mg/dL AST 18 (15-37) U/L ALT 35 (12-78) U/L Alkaline Phosphatase 86 (46-116) IU/L Total Protein 6.8 (6.4-8.2) g/dL Albumin 3.0 L (3.4-5.0) g/dL JUAN Results - Last 24 hrs: Microbiology 08/25/18 17:54 Urine Culture - Final Urine, Clean Catch MIXED JAY SUGGESTIVE OF CONTAMINATION. Med Orders - Current: Current Medications Acetaminophen (Tylenol) 650 mg PO Q4H PRN PRN Reason: Pain Aspirin (Aspirin) 160 mg PO WITHBREAKFAST [facility] Last Admin: 08/28/18 07:38 Dose: 160 mg Atorvastatin Calcium (Lipitor) 10 mg PO BEDTIME [facility] Last Admin: 08/27/18 19:46 Dose: 10 mg Diltiazem HCl (Cardizem Cd) 180 mg PO DAILY@1800 [facility] Last Admin: 08/27/18 17:46 Dose: 180 mg Finasteride (Proscar) 5 mg PO DAILY [facility] Last Admin: 08/28/18 07:40 Dose: 5 mg Fish Oil (Fish Oil) 1 gm PO DAILY [facility] Last Admin: 08/28/18 07:40 Dose: 1 gm Furosemide (Lasix) 40 mg IVPUSH DAILY [facility] Last Admin: 08/28/18 07:39 Dose: 40 mg Levofloxacin/Dextrose 500 mg/ (Premix) 100 mls @ 100 mls/hr IV Q24H [facility] Last Admin: 08/27/18 17:54 Dose: 100 mls/hr Insulin Glargine (Lantus) 10 unit SUBCUT BEDTIME [facility] Last Admin: 08/27/18 19:47 Dose: 10 units Insulin Human Lispro (Humalog) 0 unit SUBCUT TID [facility]; Protocol Last Admin: 08/28/18 07:45 Dose: 8 units Levothyroxine Sodium (Levothyroxine) 150 mcg PO ACBREAKFAST [facility] Last Admin: 08/28/18 07:39 Dose: 150 mcg Lisinopril (Prinivil) 20 mg PO Q12HR [facility] Last Admin: 08/27/18 19:46 Dose: 20 mg Magnesium Oxide (Magnesium Oxide) 800 mg PO BID [facility] Last Admin: 08/28/18 07:41 Dose: 800 mg Meclizine HCl (Antivert) 25 mg PO TID [facility] Last Admin: 08/28/18 07:41 Dose: 25 mg Nicotine (Habitrol) 21 mg TRDERM QPM [facility] Last Admin: 08/27/18 18:03 Dose: 21 mg Ciprofloxacin/Dexamethasone Otic Suspension 0.3%/0.1% Own Med 0 drop EARBOTH BID [facility] Last Admin: 08/28/18 07:45 Dose: 4 drop Senna/Docusate Sodium (Senna Plus) 1 tab PO BID PRN PRN Reason: Constipation Last Admin: 08/27/18 15:14 Dose: 1 tab Sodium Chloride (Saline Flush) 10 ml FLUSH ASDIRECTED PRN PRN Reason: Keep Vein Open Last Admin: 08/27/18 15:15 Dose: 10 ml Sodium Chloride (Saline Flush) 10 ml FLUSH Q12HR [facility] Last Admin: 08/28/18 07:44 Dose: 10 ml Temazepam (Restoril) 15 mg PO BEDTIME PRN PRN Reason: Insomnia Discontinued Medications Aspirin (Aspirin) 81 mg PO WITHBREAKFAST [facility] Last Admin: 08/26/18 08:06 Dose: 81 mg Famotidine (Pepcid) 40 mg IVPUSH ONETIME ONE Stop: 08/25/18 16:01 Last Admin: 08/25/18 16:13 Dose: 40 mg Furosemide (Lasix) 60 mg IVPUSH NOW ONE Stop: 08/25/18 17:08 Last Admin: 08/25/18 17:16 Dose: 60 mg Furosemide (Lasix) 40 mg IVPUSH Q8H [facility] Last Admin: 08/26/18 08:13 Dose: 40 mg Furosemide (Lasix) 40 mg IVPUSH DAILY [facility] Furosemide (Lasix) 40 mg IVPUSH ONETIME ONE Stop: 08/27/18 15:16 Last Admin: 08/27/18 15:14 Dose: 40 mg Glipizide (Glucotrol Xl) 10 mg PO BID [facility] Last Admin: 08/27/18 07:35 Dose: 10 mg Sodium Chloride (Normal Saline) 1,000 mls @ 100 mls/hr IV ASDIRECTED [facility] Last Admin: 08/27/18 03:21 Dose: 100 mls/hr Lisinopril (Prinivil) 20 mg PO BID [facility] Last Admin: 08/26/18 08:08 Dose: 20 mg Lisinopril (Prinivil) 20 mg PO DAILY [facility] Last Admin: 08/27/18 13:32 Dose: 20 mg Magnesium Oxide (Magnesium Oxide) 400 mg PO BID [facility] Last Admin: 08/26/18 08:08 Dose: 400 mg Metformin HCl (Glucophage) 1,000 mg PO BID [facility] Last Admin: 08/26/18 08:07 Dose: 1,000 mg Metoprolol Tartrate (Lopressor) 2.5 mg IVPUSH ONETIME ONE Stop: 08/25/18 16:01 Last Admin: 08/25/18 16:08 Dose: 2.5 mg Metoprolol Tartrate (Lopressor) 12.5 mg PO Q12HR [facility] Last Admin: 08/27/18 07:32 Dose: 12.5 mg Non-Formulary Medication ([place]-3 Fatty Acids [Fish Oil]) 1 tab PO DAILY [facility] Ciprofloxacin/Dexamethasone Otic Suspension 0.3%/0.1% Own Med 0 drop OT BID [facility] Last Admin: 08/25/18 22:11 Dose: Not Given Ciprofloxacin/Dexamethasone Otic Suspension 0.3%/0.1% Own Med 0 drop EARBOTH BID [facility] Ciprofloxacin/Dexamethasone Otic Suspension 0.3%/0.1% Own Med 0 drop EARBOTH BID [facility] Last Admin: 08/26/18 08:06 Dose: 4 drop Potassium Chloride (Klor-Con M20) 20 meq PO TID [facility] Last Admin: 08/26/18 12:27 Dose: 20 meq Sodium Chloride (Saline Flush) 10 ml FLUSH Q12HR PRN PRN Reason: Keep Vein Open Last Admin: 08/25/18 19:02 Dose: 10 ml Spironolactone (Aldactone) 12.5 mg PO BID [facility] Last Admin: 08/26/18 08:05 Dose: 12.5 mg
[2018-08-28] MEDS: Lisinopril 20 MG Tab PO SCH (10:22)
== END 2018-08-28 10:10 | disposition home or self-care (01) | DRG 292 ==
LOC: LL.ED 15:42 → LL.MS 17:03
PROVIDERS: ADMIT Family Medicine; ATTEND Family Medicine
DX: I13.0 Hypertensive heart and chronic kidney disease with heart failure and stage 1 through stage 4 chronic kidney disease, or unspecified chronic kidney disease (principal); J44.1 Chronic obstructive pulmonary disease with (acute) exacerbation; H81.10 Benign paroxysmal vertigo, unspecified ear; H91.90 Unspecified hearing loss, unspecified ear; J30.9 Allergic rhinitis, unspecified; H54.7 Unspecified visual loss; E78.00 Pure hypercholesterolemia, unspecified; K21.9 Gastro-esophageal reflux disease without esophagitis; N40.0 Benign prostatic hyperplasia without lower urinary tract symptoms; E11.22 Type 2 diabetes mellitus with diabetic chronic kidney disease; M19.91 Primary osteoarthritis, unspecified site; F43.10 Post-traumatic stress disorder, unspecified; E03.9 Hypothyroidism, unspecified; E66.9 Obesity, unspecified; I25.10 Atherosclerotic heart disease of native coronary artery without angina pectoris; I50.9 Heart failure, unspecified; F17.210 Nicotine dependence, cigarettes, uncomplicated; E78.5 Hyperlipidemia, unspecified; N18.2 Chronic kidney disease, stage 2 (mild); E88.09 Other disorders of plasma-protein metabolism, not elsewhere classified; E83.42 Hypomagnesemia; F41.8 Other specified anxiety disorders; I49.3 Ventricular premature depolarization; I48.0 Paroxysmal atrial fibrillation; I44.1 Atrioventricular block, second degree; I25.2 Old myocardial infarction; Z91.19 Patient's noncompliance with other medical treatment and regimen; Z91.030 Bee allergy status; Z88.8 Allergy status to other drugs, medicaments and biological substances; Z91.048 Other nonmedicinal substance allergy status; Z79.82 Long term (current) use of aspirin; Z79.899 Other long term (current) drug therapy; Z95.0 Presence of cardiac pacemaker; Z86.010 Personal history of colon polyps; Z87.440 Personal history of urinary (tract) infections; Z79.4 Long term (current) use of insulin; Z68.30 Body mass index [BMI] 30.0-30.9, adult; Z85.3 Personal history of malignant neoplasm of breast
CPT/HCPCS: 36415; 71045; 71046; 80053; 80061; 81001; 82550; 82553; 82962; 83036; 83605; 83735; 83880; 84443; 84484; 84550; 85025; 85379; 85610; 85730; 86140; 87086; 93005; 96374; 96375; 97112-GP; 97161-GP; 99285-25; A9270-GY; J1815; J1815-GY; J1940; J1956; J3490; J7030

== ENCOUNTER 2019-11-23 10:35 | Emergency (ER) | payer MEDICARE ==
[2019-11-23 10:44] VITALS: BP 135/83; PULSE 71
--- NOTE | 2019-11-23 10:48 | EDM.PDOC ---
ED HPI GENERAL MEDICAL PROBLEM - General Chief Complaint: General Stated Complaint: left sided chest pain, fall Time Seen by Provider: 11/23/19 10:35 Source of Information: Reports: Patient, Family (Daughter), Old Records ([facility] chart/EMR) History Limitations: Reports: No Limitations - History of Present Illness INITIAL COMMENTS - FREE TEXT/NARRATIVE: The patient was brought to the emergency room via private automobile by his daughter for evaluation of sharp left-sided rib pain, which resulted after a chest wall contusion yesterday at about 14:00 hours. The patient was fishing in somewhat rough [place] when he accidentally hit his left ribs on the post windshield. No history of fall, head injury, neurological deficits, neck/back pain, or other complaints or injuries. The patient denies any chest pain/pressure, heart flutter, dizziness, orthostasis, orthopnea, diaphoresis, paresthesias, recent decreased exercise tolerance, or any other anginal-type symptoms. No recent history of abdominal pain, heartburn, nausea, diarrhea, melena, gross hematochezia, or any food intolerance, including fatty foods, etc.. The patient also denies any recent fever, wheezing, dyspnea, etc. with stable chronic smoker's cough. Symptoms have been refractory to multiple doses of ibuprofen with last dose of 400 mg at 20:30 hours yesterday evening. Onset: Sudden Onset Date: 11/22/19 Onset Time: 14:00 Duration: Constant Location: Reports: Chest. Denies: Head, Face, Neck, Abdomen, Back, Pelvis, Upper Extremity, Left, Upper Extremity, Right, Lower Extremity, Left, Lower Extremity, Right, Radiates to Quality: Reports: Same as Previous Episode, Sharp Severity: Severe Improves with: Reports: None Worsens with: Reports: Breathing Context: Reports: Trauma (As above) Associated Symptoms: Reports: Chest Pain, Cough (As above). 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 Pain Score (Numeric/FACES): 10 - Related Data Allergies Allergy/AdvReac Type Severity Reaction Status Date / Time colistin Allergy Hives Verified 11/23/19 10:37 venom-honey bee Allergy Airway Verified 11/23/19 10:37 [bee venom (honey bee)] Tightness yellow jackets Allergy Swelling Uncoded 11/23/19 10:37 Home Meds: Home Meds Aspirin 81 mg PO Q2D 02/27/15 [History] Loratadine 10 mg PO DAILY PRN 02/27/15 [History] diphenhydrAMINE [Benadryl] 25 mg PO DAILY PRN 02/27/15 [History] Finasteride 5 mg PO DAILY 02/05/16 [History] atorvaSTATin [Lipitor] 10 mg PO BEDTIME 02/05/16 [History] Albuterol/Ipratropium [Combivent Respimat] 2 puff IH QID PRN 08/25/18 [History] Levothyroxine 150 mcg PO ACBREAKFAST 08/25/18 [History] dilTIAZem HCL [Cardizem Cd] 180 mg PO DAILY@18 08/25/18 [History] Meclizine [Antivert] 25 mg PO TID PRN #10 tablet 08/28/18 [Rx] Dulaglutide [Trulicity] 1.5 mg SQ WEEKLY 11/23/19 [History] Insulin Aspart [NovoLOG] 7 unit SQ WITHMEALSANDBED 11/23/19 [History] Insulin Glarg,Human.Rec.Analog [Lantus] 40 unit SUBCUT BEDTIME 11/23/19 [History] Magnesium Oxide 2 tab PO BID 11/23/19 [History] Nicotine Polacrilex [Nicotine Gum] 1 piece BC QID PRN 11/23/19 [History] Oxford-3/DHA/Epa/Fish Oil [Fish Oil 1,000 mg Softgel] 2 cap PO BID 11/23/19 [History] Sildenafil [Viagra] 100 mg PO BEDTIME PRN 11/23/19 [History] lisinopriL [Lisinopril] 10 mg PO DAILY 11/23/19 [History] Past Medical History HEENT History: Reports: Allergic Rhinitis, Hard of Hearing, Impaired Vision, Otitis Media, Other (See Below). Denies: Cataract, Glaucoma, Macular Degeneration, Retinal Detachment Other HEENT History: Severe right-sided chronic otitis media with Pseudomonas aeruginosa which did require one year of IV antibiotic therapy in 2010 and multiple surgeries as below, bilateral tympanic membrane ruptures during the [place] war at about age 20, patient wears reading glasses, bilateral hearing aid therapy, vitreous floaters without history of retinal detachment or diabetic retinopathy. Cardiovascular History: Reports: Arrhythmia, Heart Failure, High Cholesterol, Hypertension, Pacemaker, Syncope, Other (See Below). Denies: Afib, Blood Clots/VTE/DVT, CAD, Heart Murmur, VT, PVD Other Cardiovascular History: History of probable ventricular tachycardia with secondary syncope and asystole with did require apparent cardioversion and temporary pacemaker in 1992. PVCs. History of atrial fibrillation? 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 Respiratory History: Reports: Bronchitis, Recurrent, COPD, Intubation, Previous, Pneumonia, Recurrent, Pulmonary Fibrosis, Sleep Apnea, Other (See Below). Denies: Intubation, Difficult, PE, Pneumothorax, TB Other Respiratory History: Very occasional CPAP use Gastrointestinal History: Reports: Cholelithiasis, Colon Polyp, Diverticulosis, Fecal Incontinence, Gastritis, GERD, Helicobacter Pylori, Other (See Below). Denies: Celiac Disease, Chronic Constipation, Chronic Diarrhea, Hiatal Hernia, Inflammatory Bowel Disease, Irritable Bowel Syndrome, Jaundice, PUD Other Gastrointestinal History: H. pylori infection on 11/30/09, however the patient apparently did not complete recommended therapy. Genitourinary History: Reports: BPH, Chronic Renal Insuffiency, Diabetic Nephropathy, Renal Calculus, Urinary Incontinence, UTI, Recurrent, Other (See Below). 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 Proteinuria with diabetic nephropathy. Erectile dysfunction. Musculoskeletal History: Reports: Arthritis, Back Pain, Chronic, Fracture, Neck Pain, Chronic, Osteoarthritis, Other (See Below). Denies: Gout, RA, SLE Other Musculoskeletal History: Left anterior tibial avulsion fracture on 09/06/12, L1 vertebral body compression fracture, left distal radial fracture on 11/07/13 Neurological History: Reports: Concussion, CVA, Head Trauma, Other (See Below). 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 Denies: Diabetes, Type I, Diabetes Mellitus, Type 3c Other Endocrine/Metabolic History: Hypoalbuminemia. Hematologic History: Reports: None. Denies: Anemia, Blood Transfusion(s) Immunologic History: Reports: None. Denies: AIDS, HIV, SLE Oncologic (Cancer) History: Reports: Bladder, Other (See Below). Denies: Basal Cell Carcinoma, Colon, Hodgkin's Lymphoma, Leukemia, Lymphoma, Malignant Melanoma, Non-Hodgkin's Lymphoma, Prostate, Squamous Cell Carcinoma Other Oncologic History: Atypical urine cells and dysplasia as above Dermatologic History: Reports: None. Denies: Eczema, Psoriasis - Infectious Disease History Infectious Disease History: Reports: Chicken Pox, Helicobacter Pylori, Measles, Mumps, Rubella, Other (See Below). 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 Denies: Eye Surgery, Laser Surgery, LASIK, Naso-Sinus Surgery Other HEENT Surgeries/Procedures: Right-sided mastoidectomy in the distant past with 2 right-sided mastoid and ear surgeries in 2008 and 2018. Unknown type of left ear surgery in 2011. Tonsillectomy as a child. Complete teeth extractions with complete dentures uppers and lowers. Cardiovascular Surgical History: Reports: Pacer, Other (See Below). Denies: Coronary Artery Bypass, Varicose Other Cardiovascular Surgeries/Procedures: Permanent pacemaker placement in 2019. Temporary pacemaker 1993 as above with subsequent electro-ablation on 07/15/1992. Respiratory Surgical History: Reports: None. Denies: Thoracentesis GI Surgical History: Reports: Cholecystectomy, Colonoscopy, Polypectomy, Other (See Below). Denies: Appendectomy, EGD, Hernia, Abdominal, Hernia, Inguinal, Hernia Repair/Other Other GI Surgeries/Procedures: Laparoscopic cholecystectomy in about 2007. Colonoscopy in 1987 with polypectomy and patient refusing further follow-up colonoscopy. Male Surgical History: Reports: Circumcision, Other (See Below) Other Male Surgeries/Procedures: Circumcision as an infant. Endocrine Surgical History: Reports: None. Denies: Thyroid Biopsy Neurological Surgical History: Reports: None. Denies: C-Spine, Discectomy, Laminectomy, Lumbar Spine, Sacral Spine, Scoliosis, Spinal Fusion, Thoracic Spine, Vertebroplasty Musculoskeletal Surgical History: Reports: None. Denies: Arthroscopic Procedure, Carpal Tunnel, Ganglion Cyst, Joint Replacement, ORIF, Shoulder Surgery Oncologic Surgical History: Reports: None Dermatological Surgical History: Reports: None - Past Imaging History Past Imaging History: Reports: CAT Scan (CT scan of the head, chest, and C-spine on 08/13/10.), MRI (C-spine on 04/23/10.), Sleep Study, Ultrasound (Renal ultrasound on 11/22/13.). Denies: Cardiac Echo, Stress Testing Social & Family History - Family History HEENT: Reports: None. Denies: Allergic Rhinitis, Glaucoma, Macular Degeneration, Retinal Detachment Cardiac: Reports: CAD, Heart Failure, VT, Other (See Below). Denies: Afib, AICD, Arrhythmia, Blood Clots/VTE/DVT, Bypass, High Cholesterol, Hypertension, Pacemaker, PVD/COD, Syncope Other Cardiac Family History: Father with VT, mother with fatal CHF in her 60s Respiratory: Reports: None. Denies: Asthma, COPD, PE, Pneumothorax, Sleep Apnea GI: Reports: None. Denies: Celiac Disease, Cholelithiasis, Colon Polyps, GERD, GI bleed, Inflammatory Bowel Disease, Irritable Bowel Syndrome, PUD : Reports: None. Denies: Renal Calculus, Renal Disease/Insufficiency OBGYN: Reports: None. Denies: Endometriosis, Recurrent Spontaneous Musculoskeletal: Reports: None. Denies: Arthritis, Gout, RA, SLE Neurological: Reports: None. Denies: Alzheimers Disease, Cerebral Aneurysms, CVA, Dementia, MS, Parkinson's, Seizure, TIA Psychiatric: Reports: Anxiety, Depression, Suicide Attempt, Other (See Below). Denies: Abuse, Victim of, ADD, ADHD Other Psychiatric Family History: Brother with alcohol addiction/abuse fatal at age 58, father with anxiety depression disorder in successful suicide in his 70s Endocrine/Metabolic: Reports: Diabetes, type II, IDDM, Other (See Below). Denies: Diabetes, Type I, Diabetes Mellitus, Type 3c, Hypothyroidism Other Endocrine/Metabolic Family History: Mother with IDDM Hematologic: Reports: None. Denies: Anemia, SLE Immunologic: Reports: None. Denies: AIDS, HIV, SLE Dermatologic: Reports: None. Denies: Eczema, Psoriasis Oncologic: Reports: Breast, Leukemia, Metastatic, Other (See Below). Denies: Colon, Hodgkin's Lymphoma, Lymphoma, Non-Hodgkin's Lymphoma, Prostate Other Oncologic Family History: Mother with history of breast cancer including skeletal metastases fatal at age 65, brother with fatal leukemia in his 40s - Tobacco Use Smoking Status *Q: Current Every Day Smoker Tobacco Use Within Last Twelve Months: Cigarettes Years of Tobacco use: 59 Packs/Tins Daily: 0.5 Packs/Tins Daily Comment: Smoking at age 19 with maximum use of one pack per day. Used Tobacco, but Quit: No Smoking Cessation Information Provided To Patient: Yes Second Hand Smoke Exposure: Yes Source of Second Hand Smoke Exposure: smokes. Second Hand Smoke Education Provided: Yes - Caffeine Use Caffeine Use: Reports: Coffee (2 cups per day). Denies: Energy Drinks, Soda, Tea - Alcohol Use Alcohol Use History: Yes Days Per Week of Alcohol Use: 0 Number of Drinks Per Day: 3 Number of Drinks Per Day Comment: Usually mixed drinks on special occasions and holidays. No previous DWIs, problems with alcohol abuse, etc. Total Drinks Per Week: 0 Alcohol Use in Last Twelve Months: Yes - Recreational Drug Use Recreational Drug Use: Yes Recreational Drug Type: Reports: Cocaine (Experimental in his 30s), Marijuana/Hashish (Last used in 2013), Morphine (Previous addiction as above). 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 ED EXAM, GENERAL - Physical Exam Exam: See Below Exam Limited By: No Limitations General Appearance: Alert, WD/WN, No Apparent Distress Head: Atraumatic, Normocephalic. No: Facial Swelling, Facial Tenderness, Sinus Tenderness Neck: Normal Inspection, Supple, Non-Tender, Full Range of Motion. No: Lymphadenopathy (L), Lymphadenopathy (R) Respiratory/Chest: No Respiratory Distress, Lungs Clear, Normal Breath Sounds, No Accessory Muscle Use. No: Chest Non-Tender (Moderate palpation pain over the left inferior anterior chest wall region with no crepitation, ecchymosis, deformity,), Pleural Rub Cardiovascular: Normal Peripheral Pulses, No Edema, No Gallop, No JVD, No Murmur, No Rub, Extra Beats (Occasional extrasystoles regular rate) Peripheral Pulses: 2+: Radial (L), Radial (R) GI/Abdominal: Normal Bowel Sounds, Soft, Non-Tender, No Organomegaly, No Distention, No Abnormal Bruit, No Mass, Pelvis Stable, Other (obese). No: Guarding (Male) Exam: Deferred Rectal (Males) Exam: Deferred Back Exam: Normal Inspection, Full Range of Motion. No: CVA Tenderness (L), CVA Tenderness (R), Muscle Spasm Extremities: Normal Inspection, Normal Range of Motion, Non-Tender, No Pedal Edema, Normal Capillary Refill. No: Casi's Sign Neurological: Alert, Oriented, CN II-XII Intact, Normal Cognition, Normal Gait, No Motor/Sensory Deficits Psychiatric: Normal Affect, Normal Mood Skin Exam: Warm, Dry, Intact, Normal Color, No Rash. No: Diaphoretic, Ecchymosis, Wound/Incision Lymphatic: No Adenopathy Course - Vital Signs Last Recorded V/S: Last Vital Signs Temp 36.2 C 11/23/19 10:37 Pulse 71 11/23/19 10:37 Resp 20 11/23/19 10:37 BP 135/83 11/23/19 10:37 Pulse Ox 100 11/23/19 10:37 Vital Signs - 24 hr 06/24/20 10:37 Temperature [ 36.2 C Temporal] Pulse, 71 Peripheral [ Right Pulse Oximetry] Respiratory 20 Rate Blood Pressure 135/83 [Right Upper Arm] O2 Sat by Pulse 100 Oximetry - Orders/Labs/Meds Orders: Active Orders 24 hr Category Date Time Status Ribs 2V w Chest Lt [CR] Stat Exams 11/23/19 10:47 Ordered Obtain Past Medical Record [OM.PC] Routine Oth 11/23/19 10:47 Active Labs: None Meds: None - Radiology Interpretation Free Text/Narrative:: X-rays of the chest, one view, with additional left lateral rib x-rays show evidence of a possible hairline nondisplaced anterior rib #8 fracture with possible additional fractures in the same region of ribs numbers 6 and 7, however likely artifacts. Mild cardiomegaly with mild prominence of the proximal aortic arch and pacemaker noted. Moderate COPD changes with no pneumothorax, pulmonary infiltrates, CHF, etc. Mild bilateral granulomatosis disease. Mild hiatal hernia noted. Departure - Departure Time of Disposition: 11:42 Disposition: Home, Self-Care 01 Condition: Good Clinical Impression: Peptic reflux disease, Mixed anxiety depressive disorder, Renal insufficiency Closed rib fracture Qualifiers: Encounter type: initial encounter Rib fracture type: single rib Laterality: left Qualified Code(s): S22.32XA - Fracture of one rib, left side, initial encounter for closed fracture COPD (chronic obstructive pulmonary disease) Qualifiers: COPD type: emphysema Emphysema type: panlobular Qualified Code(s): J43.1 - Panlobular emphysema Hypothyroidism Qualifiers: Hypothyroidism type: acquired Qualified Code(s): E03.9 - Hypothyroidism, unspecified CHF (congestive heart failure) Qualifiers: Heart failure type: unspecified Heart failure chronicity: acute Qualified Code(s): I50.9 - Heart failure, unspecified Diabetes mellitus Qualifiers: Diabetes mellitus type: type 2 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: without group home use Diabetes mellitus complication status: with kidney complications Diabetes mellitus complication detail: with chronic kidney disease Chronic kidney disease stage: stage 2 (mild) Qualified Code(s): E11.22 - Type 2 diabetes mellitus with diabetic chronic kidney disease - Discharge Information *PRESCRIPTION DRUG MONITORING PROGRAM REVIEWED*: Not Applicable *COPY OF PRESCRIPTION DRUG MONITORING REPORT IN PATIENT JUAN JOSÉ: Not Applicable Instructions: Rib Fracture, [id number] Referrals: Marilia Coffman PA [Primary Care Provider] - Forms: ED Department Discharge Additional Instructions: 1. Follow up with your regular provider in 10-14 days as needed, if symptoms persist. Bring these discharge instructions with you to that visit.. 2. Tylenol 650 mg by mouth every 4 hours and/or OTC ibuprofen 2-3 tabs by mouth every 6 hours with food as directed./needed. You may stagger these medications for 48-72 hours only, which essentially means that you are receiving a pain medication about every 2 hours. 3. BenGay or equivalent, heating pad, and/or ice packs as directed. 4. Stop all tobacco use JASMIN as directed/per provided information and consider contacting [employer]uit [employer]ne, etc.. 5. Immediately after this visit verify that your cellular telephone's voicemail has been activated and is empty. Also verify that your home telephone's answering machine is operating properly and has space to receive messages. Note that it is sometimes necessary for us to be able to contact you at a later date to discuss your medical care. 6. Please remember that we are ALWAYS here for you and want to answer any questions you may have. Feel free to call the hospital any time and we call you back JASMIN. Sepsis Event Note (ED) - Evaluation Sepsis Screening Result: No Definite Risk - Focused Exam Vital Signs: Vital Signs Temp Pulse Resp BP Pulse Ox 11/23/19 10:37 36.2 C 71 20 135/83 100 - Problem List & Annotations (1) Closed rib fracture SNOMED Code(s): 84451481 Code(s): S22.39XA - FRACTURE OF ONE RIB, UNSP SIDE, INIT FOR CLOS FX Status: Acute Priority: High Current Visit: Yes Onset Date: 11/22/19 Annotation/Comment:: Probable nondisplaced left eighth rib fracture as above. Possible only rib contusion secondary to difficulty with evaluation because of his COPD changes. Symptomatic relief as per discharge instructions. Qualifiers: Encounter type: initial encounter Rib fracture type: single rib Laterality: left Qualified Code(s): S22.32XA - Fracture of one rib, left side, initial encounter for closed fracture (2) CHF (congestive heart failure) SNOMED Code(s): 90767510 Code(s): I50.9 - HEART FAILURE, UNSPECIFIED Status: Acute Priority: High Current Visit: Yes Onset Date: 08/25/18 Annotation/Comment:: No chest pain or anginal type symptoms. Note current pacemaker placement with no significant arrhythmia by today's exam. Qualifiers: Heart failure type: unspecified Heart failure chronicity: acute Qualified Code(s): I50.9 - Heart failure, unspecified (3) Renal insufficiency SNOMED Code(s): 624455675, 351028255 Code(s): N28.9 - DISORDER OF KIDNEY AND URETER, UNSPECIFIED Status: Acute Priority: Medium Current Visit: Yes Onset Date: 02/05/16 Annotation/Comment:: Probable diabetic nephropathy. Close observation by his regular providers. 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 (4) COPD (chronic obstructive pulmonary disease) SNOMED Code(s): 09359552 Code(s): J44.9 - CHRONIC OBSTRUCTIVE PULMONARY DISEASE, UNSPECIFIED Status: Chronic Priority: Medium Current Visit: Yes Annotation/Comment:: No recent fever or bronchitic-type symptoms Qualifiers: COPD type: emphysema Emphysema type: panlobular Qualified Code(s): J43.1 - Panlobular emphysema (5) Diabetes mellitus SNOMED Code(s): 39051140 Code(s): E11.9 - TYPE 2 DIABETES MELLITUS WITHOUT COMPLICATIONS Status: Chronic Priority: Medium Current Visit: Yes Annotation/Comment:: Home Accu-Cheks have been stable with Accu-Chek of 145 mg percent this morning by his history. Qualifiers: Diabetes mellitus type: type 2 Diabetes mellitus group home insulin use: without long wall shear operator use Diabetes mellitus complication status: with kidney complications Diabetes mellitus complication detail: with chronic kidney disease Chronic kidney disease stage: stage 2 (mild) Qualified Code(s): E11.22 - Type 2 diabetes mellitus with diabetic chronic kidney disease; N18.2 - Chronic kidney disease, stage 2 (mild) (6) Hypothyroidism SNOMED Code(s): 67693867 Code(s): E03.9 - HYPOTHYROIDISM, UNSPECIFIED Status: Chronic Priority: Medium Current Visit: Yes Annotation/Comment:: Currently under therapy with continuation of close observation by his regular providers. Qualifiers: Hypothyroidism type: acquired Qualified Code(s): E03.9 - Hypothyroidism, unspecified (7) Mixed anxiety depressive disorder SNOMED Code(s): 515922707 Code(s): F41.8 - OTHER SPECIFIED ANXIETY DISORDERS Status: Chronic Priority: Medium Current Visit: Yes Annotation/Comment:: Stable by history (8) Peptic reflux disease SNOMED Code(s): 100442338 Code(s): K21.9 - GASTRO-ESOPHAGEAL REFLUX DISEASE WITHOUT ESOPHAGITIS Status: Chronic Priority: Medium Current Visit: Yes Annotation/Comment:: Stable by history. - Problem List Review Problem List Initiated/Reviewed/Updated: Yes - My Orders Last 24 Hours: My Active Orders 11/23/19 10:47 Ribs 2V w Chest Lt [CR] Stat Obtain Past Medical Record [OM.PC] Routine - Assessment/Plan Last 24 Hours: My Active Orders 11/23/19 10:47 Ribs 2V w Chest Lt [CR] Stat Obtain Past Medical Record [OM.PC] Routine Assessment:: As above Plan: As above. Extensive precautions were given to the patient and his daughter, who are in agreement with the treatment plan. See Patient Instructions for further treatment and plan.
== END 2019-11-23 11:42 | disposition home or self-care (01) ==
LOC: LL.ED 10:35
DX: S22.32XA Fracture of one rib, left side, initial encounter for closed fracture (principal); J43.1 Panlobular emphysema; E03.9 Hypothyroidism, unspecified; E11.22 Type 2 diabetes mellitus with diabetic chronic kidney disease; K21.9 Gastro-esophageal reflux disease without esophagitis; F41.8 Other specified anxiety disorders; E78.00 Pure hypercholesterolemia, unspecified; I13.0 Hypertensive heart and chronic kidney disease with heart failure and stage 1 through stage 4 chronic kidney disease, or unspecified chronic kidney disease; I50.9 Heart failure, unspecified; N18.9 Chronic kidney disease, unspecified; M19.90 Unspecified osteoarthritis, unspecified site; E66.9 Obesity, unspecified; E11.21 Type 2 diabetes mellitus with diabetic nephropathy; F17.210 Nicotine dependence, cigarettes, uncomplicated; Z91.030 Bee allergy status; Z79.82 Long term (current) use of aspirin; Z79.4 Long term (current) use of insulin; Z79.899 Other long term (current) drug therapy; Z86.73 Personal history of transient ischemic attack (TIA), and cerebral infarction without residual deficits; W22.8XXA Striking against or struck by other objects, initial encounter
CPT/HCPCS: 71101-LT; 99283-25; 99284

== ENCOUNTER 2021-10-24 10:57 | Emergency (ER) | payer OTHER ==
[2021-10-24] MEDS ORDERED: Ondansetron 4 MG/2 ML SDV IVPUSH ONE (11:12)
[2021-10-24] MEDS ORDERED: HYDROmorphone 0.5 MG/0.5 ML Syringe IVPUSH ONE (11:12)
[2021-10-24] MEDS: Sodium Chloride 0.9% 10 ML Syringe FLUSH PRN ×3 (11:23→14:59)
[2021-10-24] MEDS ORDERED: Orphenadrine 60 MG/2 ML Inj IV ONE (11:40)
[2021-10-24 12:12] LABS: ANION GAP 12.5 meq/L (7-15)
[2021-10-24 13:35] VITALS: BP 132/64; PULSE 61
[2021-10-24] MEDS ORDERED: traMADol 50 MG Tab PO ONE (14:33)
[2021-10-24] MEDS ORDERED: Sodium Chloride 0.9% 1,000 ML IV ONE (14:36)
== END 2021-10-24 17:00 | disposition home or self-care (01) ==
LOC: LL.ED 10:57
DX: S40.011A Contusion of right shoulder, initial encounter (principal); B17.9 Acute viral hepatitis, unspecified; J44.9 Chronic obstructive pulmonary disease, unspecified; E11.22 Type 2 diabetes mellitus with diabetic chronic kidney disease; E11.40 Type 2 diabetes mellitus with diabetic neuropathy, unspecified; I13.0 Hypertensive heart and chronic kidney disease with heart failure and stage 1 through stage 4 chronic kidney disease, or unspecified chronic kidney disease; N18.30 Chronic kidney disease, stage 3 unspecified; I50.9 Heart failure, unspecified; E78.00 Pure hypercholesterolemia, unspecified; N40.0 Benign prostatic hyperplasia without lower urinary tract symptoms; Z91.030 Bee allergy status; Z88.8 Allergy status to other drugs, medicaments and biological substances; Z79.899 Other long term (current) drug therapy; W18.30XA Fall on same level, unspecified, initial encounter
CPT/HCPCS: 36415; 73200-RT; 76705; 80053; 80074; 80143; 82140; 82150; 82550; 83615; 85025; 85610; 96374; 96375; 99284; 99284-25; A9270-GY; J1170; J2360; J2405; J3490; J7030

== ENCOUNTER 2025-04-28 12:15 | Emergency (ER) | payer OTHER ==
[2025-04-28 12:25] VITALS: BP 146/88; PULSE 86
[2025-04-28 13:14] LABS: BASOPHILS ABSOLUTE AUTO 0.10 K/uL (0.00-0.20); BASOPHILS PERCENT AUTO 0.7 % (0.0-2.0); EOSINOPHILS ABSOLUTE AUTO 0.00 K/uL (0.00-0.50); EOSINOPHILS PERCENT AUTO 0.0 % (0.0-5.0); IMMATURE GRAN ABSOLUTE AUTO 0.04 10^3/uL (0.00-0.04); IMMATURE GRAN PERCENT AUTO 0.3 % (0.0-0.4); LYMPHOCYTES ABSOLUTE AUTO 3.41 K/uL (0.50-3.50); LYMPHOCYTES PERCENT AUTO 23.8 % (10.0-50.0); MONOCYTES ABSOLUTE AUTO 1.02 K/uL (0.00-1.00); MONOCYTES PERCENT AUTO 7.1 % (2.0-14.0); NEUTROPHILS ABSOLUTE AUTO 9.73 K/uL (1.40-7.00); NEUTROPHILS PERCENT AUTO 68.1 % (45.0-80.0); PLATELET COUNT,PLT 311 K/uL (150-350); RED BLOOD CELL COUNT 4.51 M/uL (4.33-5.41); RED CELL DISTRIBUTION WIDTH 12.9 % (11.2-14.1); WHITE BLOOD CELL COUNT,WBC 14.3 K/uL (4.0-10.2)
[2025-04-28 13:45] LABS: ALANINE AMINOTRANSFERASE,ALT 25.0 U/L (12-78); ASPARTATE AMNIOTRANSFERASE,AST 23.0 U/L (15-37); BILIRUBIN TOTAL 0.8 mg/dL (0.2-1.0); BLOOD UREA NITROGEN,BUN 24.0 mg/dL (7-18); CARBON DIOXIDE,CO2 30.0 mmol/L (21.0-32.0); CHLORIDE,CL 103.0 mmol/L (98-107); CREATININE 1.8 mg/dL (0.51-1.17); EST CRCL DRUG DOSING (CG) 36.79 mL/min; GLUCOSE RANDOM 123.0 mg/dL (70-99); POTASSIUM,K 4.7 mmol/L (3.5-5.1); PROTEIN TOTAL,TP 7.3 g/dL (6.4-8.2); SODIUM,NA 140.0 mmol/L (136-145)
[2025-04-28 13:46] LABS: ESTIMATED GFR 37.0 mL/min (>=60)
[2025-04-28 14:04] LABS: PRO B-TYPE NATRIUR PEPT,BNPPRO 2907 pg/mL (0-125)
[2025-04-28 15:59] LABS: INR 1.0 (0.9-1.1); PTT,PARTIAL THROMBOPLSTIN TIME 28.7 SEC (23.8-34.4)
[2025-04-28] MEDS: Sodium Chloride 0.9% 10 ML Syringe FLUSH PRN (16:01)
[2025-04-28] MEDS: Heparin Sodium 5,000 Units/ML Vial IVPUSH ONE (16:29)
[2025-04-28] MEDS: Heparin Sodium/0.45% NaCl 500 ML IV SCH (16:30)
== END 2025-04-28 17:10 ==
LOC: LL.ED 12:15
DX: I44.7 Left bundle-branch block, unspecified (principal); R79.89 Other specified abnormal findings of blood chemistry; J98.9 Respiratory disorder, unspecified; E78.00 Pure hypercholesterolemia, unspecified; E03.9 Hypothyroidism, unspecified; E11.40 Type 2 diabetes mellitus with diabetic neuropathy, unspecified; E11.22 Type 2 diabetes mellitus with diabetic chronic kidney disease; I12.9 Hypertensive chronic kidney disease with stage 1 through stage 4 chronic kidney disease, or unspecified chronic kidney disease; N18.9 Chronic kidney disease, unspecified; Z88.8 Allergy status to other drugs, medicaments and biological substances; Z91.030 Bee allergy status; Z79.899 Other long term (current) drug therapy; Z79.4 Long term (current) use of insulin; Z95.0 Presence of cardiac pacemaker; Z86.73 Personal history of transient ischemic attack (TIA), and cerebral infarction without residual deficits
CPT/HCPCS: 36415; 71046; 80053; 83735; 83880; 84484; 85025; 85379; 85610; 85730; 87428-QW; 93005; 96365; 96375; 99285-25; A9270-GY; J0696; J1644; J7040

== ENCOUNTER 2025-05-05 19:58 | Emergency (ER) | payer OTHER ==
[2025-05-05 20:25] LABS: BASOPHILS ABSOLUTE AUTO 0.06 K/uL (0.00-0.20); BASOPHILS PERCENT AUTO 0.4 % (0.0-2.0); EOSINOPHILS ABSOLUTE AUTO 0.00 K/uL (0.00-0.50); EOSINOPHILS PERCENT AUTO 0.0 % (0.0-5.0); IMMATURE GRAN ABSOLUTE AUTO 0.28 10^3/uL (0.00-0.04); IMMATURE GRAN PERCENT AUTO 1.9 % (0.0-0.4); LYMPHOCYTES ABSOLUTE AUTO 4.75 K/uL (0.50-3.50); LYMPHOCYTES PERCENT AUTO 33.0 % (10.0-50.0); MONOCYTES ABSOLUTE AUTO 0.90 K/uL (0.00-1.00); MONOCYTES PERCENT AUTO 6.3 % (2.0-14.0); NEUTROPHILS ABSOLUTE AUTO 8.41 K/uL (1.40-7.00); NEUTROPHILS PERCENT AUTO 58.4 % (45.0-80.0); PLATELET COUNT,PLT 386 K/uL (150-350); RED BLOOD CELL COUNT 4.63 M/uL (4.33-5.41); RED CELL DISTRIBUTION WIDTH 12.9 % (11.2-14.1); WHITE BLOOD CELL COUNT,WBC 14.4 K/uL (4.0-10.2)
[2025-05-05 21:00] LABS: ALANINE AMINOTRANSFERASE,ALT 101.0 U/L (12-78); ASPARTATE AMNIOTRANSFERASE,AST 30.0 U/L (15-37); BILIRUBIN TOTAL 0.5 mg/dL (0.2-1.0); BLOOD UREA NITROGEN,BUN 39.0 mg/dL (7-18); CARBON DIOXIDE,CO2 27.3 mmol/L (21.0-32.0); CHLORIDE,CL 103.0 mmol/L (98-107); CREATININE 2.08 mg/dL (0.51-1.17); EST CRCL DRUG DOSING (CG) 31.83 mL/min; GLUCOSE RANDOM 212.0 mg/dL (70-99); POTASSIUM,K 4.7 mmol/L (3.5-5.1); PRO B-TYPE NATRIUR PEPT,BNPPRO 2048.0 pg/mL (0-125); PROTEIN TOTAL,TP 7.2 g/dL (6.4-8.2); SODIUM,NA 138.0 mmol/L (136-145)
[2025-05-05 21:02] LABS: ESTIMATED GFR 31.0 mL/min (>=60)
[2025-05-05 21:04] LABS: INR 1.1 (0.9-1.1); PTT,PARTIAL THROMBOPLSTIN TIME 28.6 SEC (23.8-34.4)
[2025-05-05] MEDS: Sodium Chloride 0.9% 10 ML Syringe FLUSH PRN (21:08)
[2025-05-05] MEDS: Lactated Ringers 1,000 ML IV ONE (21:08)
[2025-05-06 01:31] VITALS: PULSE 61
[2025-05-06 02:04] VITALS: BP 101/55
== END 2025-05-06 03:15 | disposition home or self-care (01) ==
LOC: LL.ED 19:58
DX: I13.0 Hypertensive heart and chronic kidney disease with heart failure and stage 1 through stage 4 chronic kidney disease, or unspecified chronic kidney disease (principal); I50.9 Heart failure, unspecified; E11.22 Type 2 diabetes mellitus with diabetic chronic kidney disease; N18.9 Chronic kidney disease, unspecified; E86.0 Dehydration; E78.00 Pure hypercholesterolemia, unspecified; J44.9 Chronic obstructive pulmonary disease, unspecified; E11.40 Type 2 diabetes mellitus with diabetic neuropathy, unspecified; M19.90 Unspecified osteoarthritis, unspecified site; E03.9 Hypothyroidism, unspecified; E66.9 Obesity, unspecified; Z90.89 Acquired absence of other organs; Z90.49 Acquired absence of other specified parts of digestive tract; Z88.8 Allergy status to other drugs, medicaments and biological substances; Z91.030 Bee allergy status; Z91.048 Other nonmedicinal substance allergy status; Z79.899 Other long term (current) drug therapy; Z79.4 Long term (current) use of insulin; Z79.51 Long term (current) use of inhaled steroids; Z79.890 Hormone replacement therapy; Z68.27 Body mass index [BMI] 27.0-27.9, adult
CPT/HCPCS: 36415; 71045; 80053; 82947; 83605; 83690; 83735; 83880; 84484; 85025; 85610; 85730; 93005; 96360; 99285-25; A9270-GY; J7120